=== PATIENT | male | born 1945 | race Two or more races ===

== ENCOUNTER 2016-07-02 16:30 | Inpatient (IN) | payer MEDICARE, OTHER ==
[~2016-07-02] VITALS: Ht 170.2 cm; Wt 67.1 kg
[2016-07-02 17:18] VITALS: BP 170/58
[2016-07-02 17:26] LABS: MEAN CORPUSCULAR HGB CONC 32.2 G/DL (32.0-36.0); MEAN CORPUSCULAR VOLUME 90 FL (80-99); MEAN PLATELET VOLUME 5.1 FL (6.5-10.1); PLATELET COUNT 419 K/UL (150-450); RED BLOOD COUNT 2.69 M/UL (4.70-6.10); RED CELL DISTRIBUTION WIDTH 14.4 % (11.6-14.8); WHITE BLOOD COUNT 8.2 K/UL (4.8-10.8)
[2016-07-02] MEDS ORDERED: AMLODIPINE BESYL5 MG ORAL (17:27)
[2016-07-02] MEDS ORDERED: HUMULIN N100 UNIT/1 SUBQ (17:27)
[2016-07-02 17:40] LABS: PROTHROMBIN TIME 10.3 SEC (9.30-11.50)
[2016-07-02 17:44] LABS: ALANINE AMINOTRANSFERASE 8 U/L (3-41); ALBUMIN/GLOBULIN RATIO 0.6 (1.0-2.7); ANION GAP 14 (5-15); ASPARTATE AMINO TRANSFERASE 14 U/L (5-40); CALCIUM 8.9 mg/dL (8.6-10.2); CARBON DIOXIDE 27 mEQ/L (20-30); CHLORIDE 92 mEQ/L (98-107); CREATININE 1.2 mg/dL (0.7-1.2); GLOMERULAR FILTRATION RATE > 60 mL/min (>60); HEMOLYSIS 0; POTASSIUM 4.5 mEQ/L (3.4-4.9); SODIUM 133 mEQ/L (135-145); TOTAL PROTEIN 8.5 g/dL (6.6-8.7)
[2016-07-02 18:49] LABS: BAND NEUTROPHILS % (MANUAL) 1 % (0-8); EOSINOPHILS % (MANUAL) 5 % (0-3); LYMPHOCYTES % (MANUAL) 19 % (20-45); NEUTROPHILS % (MANUAL) 65 % (45-75); TOTAL CELLS COUNTED 100
[2016-07-02 18:50] LABS: ANISOCYTOSIS 1+; BASOPHILS % (MANUAL) 0 % (0-2); PLATELET ESTIMATE INCREASED; PLATELET MORPHOLOGY NORMAL; POLYCHROMASIA 1+
[2016-07-02 19:13] VITALS: BP 158/67
--- NOTE | 2016-07-02 19:24 | Emergency Room Report ---
History of Present Illness General Chief Complaint: General Complaint Source: Patient Present Illness HPI 71-year-old male referred to ED for evaluation. Patient states he was told his hemoglobin was low. Patient had blood work done last week. Patient was referred by PMD Dr. Feliciano. Upon arrival patient states he feels fine. Denies any weakness. Denies any chest pain or shortness of breath. Denies any blood in the stool. No aggravating relieving factors. Denies any other associated symptoms Allergies: Coded Allergies: No Known Allergies (Unverified , 07/02/16) Patient History Past Medical History: DM, HTN Past Surgical History: other - toe amputations Pertinent Family History: none Social History: Denies: alcohol use, drug use, smoking Immunizations: UTD Reviewed Nursing Documentation: PMH: Agreed, PSxH: Agreed Nursing Documentation-PMH Past Medical History: No History, Except For Hx Hypertension: Yes Hx Diabetes: Yes Review of Systems All Other Systems: negative except mentioned in HPI Physical Exam Vital Signs Date Time Temp Pulse Resp B/P Pulse Ox O2 Delivery O2 Flow Rate FiO2 07/02/16 16:40 98.1 72 18 169/64 98 Room Air Sp02 EP Interpretation: reviewed, normal General Appearance: no apparent distress, alert, GCS 15, non-toxic Head: normocephalic, atraumatic Eyes: bilateral eye PERRL, bilateral eye normal inspection ENT: hearing grossly normal, normal pharynx, no angioedema, normal voice Neck: full range of motion, supple/symm/no masses Respiratory: chest non-tender, lungs clear, normal breath sounds, speaking full sentences Cardiovascular #1: regular rate, rhythm, no edema Cardiovascular #2: 2+ carotid (R), 2+ carotid (L), 2+ radial (R), 2+ radial (L) , 2+ dorsalis pedis (R), 2+ dorsalis pedis (L) Gastrointestinal: normal bowel sounds, non tender, soft, non-distended, no guarding, no rebound Rectal: deferred Genitourinary: normal inspection, no CVA tenderness Musculoskeletal: back normal, gait/station normal, normal range of motion, non- tender Neurologic: alert, oriented x3, responsive, motor strength/tone normal, sensory intact, speech normal Psychiatric: judgement/insight normal, memory normal, mood/affect normal, no suicidal/homicidal ideation Reflexes: 3+ bicep (R), 3+ bicep (L), 3+ tricep (R), 3+ tricep (L), 3+ knee (R) , 3+ knee (L) Skin: normal color, no rash, warm/dry, well hydrated Lymphatic: no adenopathy Medical Decision Making Diagnostic Impression: Primary Impression: Anemia ER Course Hospital Course 71-year-old male presents to ED for evaluation of possible anemia Differential diagnoses include: anemia requiring transfusion, microcytic anemia , macrocytic anemia, heavy blood loss Clinical course Patient placed on stretcher. After initial history and physical I ordered labs including CBC and type and screen. Labs- hemoglobin/hematocrit 7.8/24.3. Electrolytes okay, no leukocytosis PRBCs ordered. Patient will be admitted to Dr Feliciano Diagnosis - Anemia Admitted to floor in serious condition Labs Test 07/02/16 17:14 White Blood Count 8.2 K/UL (4.8-10.8) Red Blood Count 2.69 M/UL (4.70-6.10) Hemoglobin 7.8 G/DL (14.2-18.0) Hematocrit 24.3 % (42.0-52.0) Mean Corpuscular Volume 90 FL (80-99) Mean Corpuscular Hemoglobin 29.0 PG (27.0-31.0) Mean Corpuscular Hemoglobin Concent 32.2 G/DL (32.0-36.0) Red Cell Distribution Width 14.4 % (11.6-14.8) Platelet Count 419 K/UL (150-450) Mean Platelet Volume 5.1 FL (6.5-10.1) Neutrophils (%) (Auto) % (45.0-75.0) Lymphocytes (%) (Auto) % (20.0-45.0) Monocytes (%) (Auto) % (1.0-10.0) Eosinophils (%) (Auto) % (0.0-3.0) Basophils (%) (Auto) % (0.0-2.0) Differential Total Cells Counted 100 Neutrophils % (Manual) 65 % (45-75) Lymphocytes % (Manual) 19 % (20-45) Monocytes % (Manual) 10 % (1-10) Eosinophils % (Manual) 5 % (0-3) Basophils % (Manual) 0 % (0-2) Band Neutrophils 1 % (0-8) Platelet Estimate Increased Platelet Morphology Normal Polychromasia 1+ Anisocytosis 1+ Prothrombin Time 10.3 SEC (9.30-11.50) Prothromb Time International Ratio 1.0 (0.9-1.1) Activated Partial Thromboplast Time 30 SEC (23-33) Sodium Level 133 mEQ/L (135-145) Potassium Level 4.5 mEQ/L (3.4-4.9) Chloride Level 92 mEQ/L (98-107) Carbon Dioxide Level 27 mEQ/L (20-30) Anion Gap 14 (5-15) Blood Urea Nitrogen 22 mg/dL (7-23) Creatinine 1.2 mg/dL (0.7-1.2) Estimat Glomerular Filtration Rate > 60 mL/min (>60) Glucose Level 138 mg/dL (74-106) Calcium Level 8.9 mg/dL (8.6-10.2) Total Bilirubin 0.2 mg/dL (0.0-1.2) Aspartate Amino Transf (AST/SGOT) 14 U/L (5-40) Alanine Aminotransferase (ALT/SGPT) 8 U/L (3-41) Alkaline Phosphatase 84 U/L (40-129) Total Protein 8.5 g/dL (6.6-8.7) Albumin 3.3 g/dL (3.5-5.2) Globulin 5.2 g/dL Albumin/Globulin Ratio 0.6 (1.0-2.7) Last Vital Signs Date Time Temp Pulse Resp B/P Pulse Ox O2 Delivery O2 Flow Rate FiO2 07/02/16 19:13 98.0 76 15 158/67 100 Room Air Status: improved Disposition: ADMITTED INPATIENT Condition: Serious Referrals: Saran Feliciano MD (PCP) JAZMIN VILLAREAL M.D. Jul 02, 2016 19:24
[2016-07-02] MEDS ORDERED: Mylanta II UD 30ml ORAL PRN (20:45)
[2016-07-02] MEDS ORDERED: Miralax 17gm pkt ORAL PRN (20:45)
[2016-07-02] MEDS ORDERED: LORazepam Inj 2mg/ml 1ml IV PRN (20:45)
[2016-07-02] MEDS ORDERED: Zolpidem 5mg tab ORAL PRN (20:45)
[2016-07-02 21:27] LABS: PATH BLOOD SMEAR/OMC SENT TO PATHOLOGIST
[2016-07-02 21:36] VITALS: BP 169/57
[2016-07-02 21:42] LABS: INR 1.1 (0.9-1.1); PROTHROMBIN TIME 10.7 SEC (9.30-11.50)
[2016-07-02] MEDS: Morphine Sulfate 2mg/ml Inj IVP PRN (22:07)
[2016-07-02 22:41] LABS: RETICULOCYTE COUNT 1.4 % (0.0-2.0)
[2016-07-02 22:45] VITALS: BP 131/97
[2016-07-02 23:00] VITALS: BP 121/60
[2016-07-02] MEDS: NovoLOG Insulin Flexpen SUBQ SCH (23:11)
[2016-07-03] VITALS: BP 123/55
[2016-07-03 03:43] VITALS: BP 146/68
[2016-07-03] MEDS: NovoLOG Insulin Flexpen SUBQ SCH ×4 (06:01→20:56)
[2016-07-03 06:50] LABS: BASOPHILS % (AUTO) 0.6 % (0.0-2.0); EOSINOPHILS % (AUTO) 3.5 % (0.0-3.0); LYMPHOCYTES % (AUTO) 20.4 % (20.0-45.0); MEAN CORPUSCULAR HEMOGLOBIN 27.9 PG (27.0-31.0); MEAN CORPUSCULAR HGB CONC 31.5 G/DL (32.0-36.0); MEAN CORPUSCULAR VOLUME 88 FL (80-99); MEAN PLATELET VOLUME 5.4 FL (6.5-10.1); MONOCYTES % (AUTO) 12.7 % (1.0-10.0); NEUTROPHILS % (AUTO) 62.8 % (45.0-75.0); PLATELET COUNT 319 K/UL (150-450); RED BLOOD COUNT 2.87 M/UL (4.70-6.10); RED CELL DISTRIBUTION WIDTH 13.9 % (11.6-14.8); WHITE BLOOD COUNT 6.8 K/UL (4.8-10.8)
[2016-07-03 07:22] LABS: ALANINE AMINOTRANSFERASE 6 U/L (3-41); ALBUMIN/GLOBULIN RATIO 0.6 (1.0-2.7); ANION GAP 11 (5-15); ASPARTATE AMINO TRANSFERASE 12 U/L (5-40); CALCIUM 8.5 mg/dL (8.6-10.2); CARBON DIOXIDE 28 mEQ/L (20-30); CHLORIDE 98 mEQ/L (98-107); CREATININE 1.3 mg/dL (0.7-1.2); GLOMERULAR FILTRATION RATE 54.7 mL/min (>60); HEMOLYSIS 6; POTASSIUM 4.9 mEQ/L (3.4-4.9); SODIUM 137 mEQ/L (135-145); TOTAL PROTEIN 7.2 g/dL (6.6-8.7)
[2016-07-03 08:17] VITALS: BP 148/59
[2016-07-03 11:55] VITALS: BP 142/62
[2016-07-03 16:00] VITALS: BP 142/59
--- NOTE | 2016-07-03 17:04 | History & Physical ---
History and Physical History & Physicial Dictated for Int Med Dr Feliciano no. [id number]. GERSON FLOR Jul 03, 2016 17:04
--- NOTE | 2016-07-03 19:37 | Consultation ---
History of Present Illness General Date patient seen: Jul 03, 2016 Time patient seen: 13:30 Chief Complaint: General Complaint Referring physician: Braden Reason for Consultation: internal medicine management Present Illness HPI 71-year-old male was referred to ED for evaluation. Patient stated that he was told his hemoglobin was low, blood work done last week. Denies weakness, No chest pain, no SOB Denies melena, hematemesis, hematochezia Denies any weakness. ED workup revealed hemoglobin of 7.8 and Hct 24.3 No leukocytosis, stable lytes patient was admitted for further management and blood transfusion to [facility] floor PMH: DM, HTN, depression, hx of R foot toes amputation earlier this month , R eye cataract Allergies: Coded Allergies: No Known Allergies (Unverified , 07/02/16) Medication History Scheduled Amlodipine Besylate* (Amlodipine Besylate*), 5 MG ORAL DAILY, (Reported) Miscellaneous Medications Nph, Human Insulin Isophane (Humulin N), 0 SUBQ, (Reported) Patient History History Provided By: Patient Healthcare decision maker Resuscitation status Full Code Advanced Directive on File Review of Systems Constitutional: Reports: no symptoms Eye: Reports: acuity changes, other - R eye cataracts Respiratory: Reports: no symptoms Cardiovascular: Reports: other - HTN Gastrointestinal: Reports: constipation Genitourinary: Reports: no symptoms Musculoskeletal: Reports: other - w/chair bound Skin: Reports: other - R foot all toes amputation Psychiatric: Reports: other - depression Neurological: Reports: no symptoms Endocrine: Reports: other - diabetes Hematologic/Lymphatic: Reports: anemia Physical Exam General Appearance: no apparent distress, alert Lines, tubes and drains: peripheral HEENT: normocephalic, atraumatic, anicteric, mucous membranes moist, PERRL Neck: non-tender, supple Respiratory/Chest: lungs clear, no respiratory distress, no accessory muscle use Cardiovascular/Chest: normal peripheral pulses, normal rate, no JVD Abdomen: normal bowel sounds, non tender, soft Extremities: no calf tenderness, normal capillary refill, other - w/chair bound , R foot all toes amputated Skin Exam: other Musculoskeletal: atrophy - BLE Last 24 Hour Vital Signs Date Time Temp Pulse Resp B/P Pulse Ox O2 Delivery O2 Flow Rate FiO2 07/03/16 16:00 98.2 78 20 142/59 98 Room Air 07/03/16 13:39 73 144/65 07/03/16 11:55 98.4 68 20 142/62 99 Room Air 07/03/16 08:17 97.7 64 20 148/59 99 Room Air 07/03/16 03:43 98.2 65 18 146/68 99 Room Air 07/03/16 00:00 98.2 56 18 123/55 100 Room Air 07/02/16 23:00 97.9 60 18 121/60 98 Room Air 07/02/16 22:45 97.7 70 20 131/97 97 Room Air 07/02/16 22:06 79 169/57 07/02/16 21:36 98.3 79 17 169/57 100 Room Air Intake and Output 07/02/16 07/03/16 19:00 07:00 Intake Total 675 ml Output Total 500 ml Balance 175 ml Intake Oral 675 ml Output Urine Total 500 ml # Voids 5 Laboratory Tests Test 07/02/16 21:15 07/03/16 05:45 Erythrocyte Sedimentation Rate 142 MM/HR (0-20) H Reticulocyte Count 1.4 % (0.0-2.0) Prothrombin Time 10.7 SEC (9.30-11.50) Prothromb Time International Ratio 1.1 (0.9-1.1) Activated Partial Thromboplast Time 30 SEC (23-33) Iron Level 22 ug/dL (59-158) L Total Iron Binding Capacity 195 ug/dL (250-400) L Percent Iron Saturation 11 % (15-50) L Unsaturated Iron Binding 173 ug/dL (112-346) Lactate Dehydrogenase 191 U/L (135-230) Carcinoembryonic Antigen 1.5 ng/mL Vitamin B12 Level 122 pg/mL (211-946) L White Blood Count 6.8 K/UL (4.8-10.8) Red Blood Count 2.87 M/UL (4.70-6.10) L Hemoglobin 8.0 G/DL (14.2-18.0) L Hematocrit 25.4 % (42.0-52.0) L Mean Corpuscular Volume 88 FL (80-99) Mean Corpuscular Hemoglobin 27.9 PG (27.0-31.0) Mean Corpuscular Hemoglobin Concent 31.5 G/DL (32.0-36.0) L Red Cell Distribution Width 13.9 % (11.6-14.8) Platelet Count 319 K/UL (150-450) Mean Platelet Volume 5.4 FL (6.5-10.1) L Neutrophils (%) (Auto) 62.8 % (45.0-75.0) Lymphocytes (%) (Auto) 20.4 % (20.0-45.0) Monocytes (%) (Auto) 12.7 % (1.0-10.0) H Eosinophils (%) (Auto) 3.5 % (0.0-3.0) H Basophils (%) (Auto) 0.6 % (0.0-2.0) Sodium Level 137 mEQ/L (135-145) Potassium Level 4.9 mEQ/L (3.4-4.9) Chloride Level 98 mEQ/L (98-107) Carbon Dioxide Level 28 mEQ/L (20-30) Anion Gap 11 (5-15) Blood Urea Nitrogen 27 mg/dL (7-23) H Creatinine 1.3 mg/dL (0.7-1.2) H Estimat Glomerular Filtration Rate 54.7 mL/min (>60) Glucose Level 191 mg/dL (74-106) H Calcium Level 8.5 mg/dL (8.6-10.2) L Total Bilirubin < 0.2 mg/dL (0.0-1.2) Aspartate Amino Transf (AST/SGOT) 12 U/L (5-40) Alanine Aminotransferase (ALT/SGPT) 6 U/L (3-41) Alkaline Phosphatase 72 U/L (40-129) Total Protein 7.2 g/dL (6.6-8.7) Albumin 2.9 g/dL (3.5-5.2) L Globulin 4.3 g/dL Albumin/Globulin Ratio 0.6 (1.0-2.7) L Thyroid Stimulating Hormone (TSH) 1.290 uIU/mL (0.300-4.500) Height (Feet): 5 Height (Inches): 9.00 Weight (Pounds): 150 Medications Current Medications Medications (Trade) Dose Ordered Sig/Daphne Route PRN Reason Start Time Stop Time Status Last Admin Dose Admin Acetaminophen (Tylenol) 650 mg Q4H PRN ORAL fever 07/02/16 20:45 08/01/16 20:44 Al Hydroxide/Mg Hydroxide (Mylanta II) 30 ml Q6H PRN ORAL dyspepsia 07/02/16 20:45 08/01/16 20:44 Amlodipine Besylate (Norvasc) 5 mg DAILY ORAL 07/02/16 21:30 08/01/16 21:29 07/03/16 13:39 Dextrose (Dextrose 50%) STAT PRN IV Hypoglycemia 07/02/16 20:45 08/01/16 20:44 Insulin Aspart (NovoLOG) BEFORE MEALS AND HS SUBQ 07/02/16 22:00 08/01/16 21:59 07/03/16 16:47 Lorazepam (Ativan 2mg/ml 1ml) 0.5 mg Q4H PRN IV For Anxiety 07/02/16 20:45 07/09/16 20:44 Morphine Sulfate (Morphine Sulfate) 1 mg EVERY 4 HOURS PRN IVP For Pain 07/02/16 20:45 07/09/16 20:44 07/02/16 22:07 Ondansetron HCl (Zofran) 4 mg Q6H PRN IVP Nausea & Vomiting 07/02/16 20:45 08/01/16 20:44 Polyethylene Glycol (Miralax) 17 gm HSPRN PRN ORAL Constipation 07/02/16 20:45 08/01/16 20:44 Zolpidem Tartrate (Ambien) 5 mg HSPRN PRN ORAL Insomnia 07/02/16 20:45 08/01/16 20:44 Assessment/Plan Assessment/Plan ASSESSMENT anemia B 12 deficiency iron deficiency anemia DM HTN s/p R toes amputation PVD PLAN OF CARE [facility] floor s/p 1 u PRBC anemia workup with B 12 deficiency and low iron start on vit B 12 replacement heme follows?Venofer = per heme discretion m,onitor HH cloely, tranfuse a sneeded stool OB x 2 CEA WNL BS management with SS of insulin podiatry eval as per PMD discretion Venous Duplex BLE negative check Arterial Duplex BLE BP monitoring manager with CCB pain management bowel regimen case discussed and evaluated by supervising physician Delmer Zavala)Emily NP Jul 03, 2016 19:37
--- NOTE | 2016-07-03 19:39 | Wound Care Consultation ---
Wound Assessment Wound Assessment : Wound Present on Admission: Yes New Wound: No Status Change of Wound: No Wound Location Body Site Modif: right Wound Location Body Site: other - s/p all toes amputation Wound Type: incision Shiloh Test: Does not Shiloh Incisional Wounds: Dehisced Incision Wound Length: 11.0 Wound Width: 4.0 Wound Depth: utd Percent of Wound [place]/Red: 20 Percent of Wound Bed Yellow/Wh: 60 Percent of Wound Black/Brown: 20 Wound Drainage Description: Serosanguineous Wound Drainage Amount: Moderate Wound Drainage Odor: None/Absent Tissue Surrounding Wound: Macerated Wound General Appearance: Draining Wound Comment #1 S/p toe amputation of the right toes on 05/2016 Recommendation -Cleanse with saline pat dry apply adaptic cover with 4x4 wrap with kerilx daily and PRN soiled/dislodged -Study Abroad Advisor consult -Keep clean and dry -Offload heel -Optimize nutrition -Assess and f/u with MD for any changes BRYANT TAYLOR RN Jul 03, 2016 19:39
[2016-07-03 20:00] VITALS: BP 141/70
--- NOTE | 2016-07-03 21:42 | Diagnostic Imaging Report ---
APPROVED REPORT CPT Code: 54900 Present Symptoms Lower Extremity Pain: Right Comments: R/O DVT BILATERAL: Imaging reveals a patent deep venous system bilaterally. There is no evidence of thrombus within the femoral, popliteal or tibial segments. The greater saphenous veins are also within normal limits. Doppler indicates normal spontaneous flow within these segments.
--- NOTE | 2016-07-03 23:09 | History and Physical Report ---
DATE OF ADMISSION: 07/03/2016 CHIEF COMPLAINT: The patient is a 71-year-old male, presents with complaint of anemia. Dictating for Dr. Feliciano. HISTORY OF PRESENT ILLNESS: Apparently, the patient had blood drawn at Dr. Feliciano's office. The patient was told to come to the emergency room. The patient was found to have a hemoglobin of 7.8. According to the patient's daughter, who was at the bedside, the patient has a history of right foot ulcer. The patient has not been able to eat or drink much secondary to immobility. The patient has been seen by a home health nurse. The patient's daughter states that the patient has lost approximately 30 pounds in the last month. The patient's daughter believes, the patient's anemia may be secondary to malnutrition. The patient was admitted for severe anemia. PAST MEDICAL HISTORY: Significant for: 1. Type 2 diabetes. 2. Hypertension. PAST SURGICAL HISTORY: Significant for laser surgery, bilateral eyes for diabetic retinopathy. CURRENT MEDICATIONS: 1. Amlodipine 5 mg one tablet p.o. daily. 2. NPH insulin 12 units subcutaneously daily. ALLERGIES: No known drug allergies. SOCIAL HISTORY: The patient is . The patient denied tobacco use having, quit 25 years ago. The patient admits to rare alcohol use. FAMILY HISTORY: Negative for diabetes or coronary artery disease. REVIEW OF SYSTEMS: CONSTITUTIONAL: The patient denies fevers or chills. The patient complains of weight loss as above. HEENT: The patient denies ear or throat pain. The patient denies headache. CARDIOVASCULAR: The patient denies palpitations or chest pain. CHEST: The patient denies wheezes or shortness of breath. ABDOMINAL: The patient denies nausea, vomiting, diarrhea, or constipation. GENITOURINARY: The patient denies dysuria or increased frequency of urination. NEUROMUSCULAR: The patient denies seizures or generalized weakness. PHYSICAL EXAMINATION: VITAL SIGNS: Temperature 97.9, respirations 18, pulse 60, blood pressure 129/60. GENERAL: The patient is a well-developed and well-nourished thin-appearing male, in no apparent distress. HEENT: Eyes, pupils are equal and responsive to light and accommodation. Extraocular movements are intact. NECK: Supple without lymphadenopathy. CHEST: Lungs are clear to auscultation without wheezes or rales. CARDIOVASCULAR: Regular rhythm and rate. S1 and S2 are normal without murmurs, rubs, or gallops. ABDOMEN: Soft, nontender, and nondistended. Positive bowel sounds. No evidence of hepatosplenomegaly. Currently, no rebound or guarding. EXTREMITIES: Negative for clubbing, cyanosis, or edema. RECTAL/GENITAL: Refused. NEUROLOGICAL: Cranial nerves II through XII are grossly intact without focal deficits. Motor strength is 5/5 bilaterally. Deep tendon reflexes are 2+ plantar. LABORATORY DATA: Laboratory studies, WBC 8.2, hemoglobin 7.8, hematocrit 24.3, and platelets 419,000. Sodium 133, potassium 4.5, chloride 92, CO2 27, BUN 22, creatinine 1.2, and glucose 138. ASSESSMENT: This is a 71-year-old male with: 1. Severe anemia. 2. Right foot ulcer. 3. Diabetes, type 2. 4. Hypertension. 5. Diabetic retinopathy. TREATMENT: 1. Anemia, severe. A Hematology/Oncology consultation was obtained with Dr. Collins. A Gastroenterology consultation was obtained with Dr. Farris. Anemia, may be secondary to malnutrition as above versus gastrointestinal bleeding versus deficiency. We will follow recommendations of Gastroenterology and Hematology. 2. Diabetes, type 2. The patient has been placed on NovoLog sliding scale. 3. Hypertension. We will continue Norvasc as above. 4. Diabetic retinopathy. Malcolm Lazaro M.D. DR: JANIE JOB#: [id number] CC:
--- NOTE | 2016-07-03 23:29 | Consultation ---
DATE OF CONSULTATION: 07/03/2016 CONSULTING PHYSICIAN: Curry Ramos D.P.M. covering for Raymon Alves D.P.M. REASON FOR CONSULTATION: Right foot ulcer. HISTORY OF PRESENT ILLNESS: This is a 71-year-old male, who was found unconscious in his apartment 5 weeks ago with right forefoot gangrene. A transmetatarsal amputation was performed at [facility] and the wound was left open. The patient was discharged home with 10 days of oral antibiotics. Home health has been coming to his house daily for dressing changes. The patient states he has been noticing pain at the plantar aspect of the right foot. No nausea, vomiting, fevers, or chills reported. PAST MEDICAL HISTORY: Type 2 diabetes, anemia, and the right forefoot gangrene. PAST SURGICAL HISTORY: Left hallux amputation and right foot open transmetatarsal amputation. ALLERGIES: No known. MEDICATIONS: The patient is currently not on any antibiotics. Please refer the chart for details. FAMILY HISTORY: Noncontributory. SOCIAL HISTORY: Patient denied tobacco, alcohol, or illicit drug use. PHYSICAL EXAM: VITAL SIGNS: Temperature 98.4 degrees, pulse 68, respiratory rate 40, blood pressure 142/62, pulse oximetry is 99% on room air. DERMATOLOGICAL: Right foot with open transmetatarsal amputation. The area has four sutures in place. The skin edges are noted to have slight necrosis. No purulence or malodor noted. The area is approximately 50% granular and 50% fibrotic. Mild serous drainage. The wound does not appear to probe to bone. The right plantar foot is painful with palpation. Edema noted with the plantar aspect of the right foot. NEUROLOGICAL: Decreased sensation to light touch. VASCULAR: pulses difficult to palpate. Right plantar mid foot edema. No surrounding erythema or no ascending lymphangitis. MUSCULOSKELETAL: Right foot with open transmetatarsal amputation. Left foot with hallux amputation. LABORATORY AND DIAGNOSTIC DATA: White blood count of 6.8, hemoglobin is 8.0, hematocrit 25.4, platelets 319,000, and neutrophils of 62.8. Sodium 137, potassium 4.1, chloride 98, CO2 28, BUN 27, creatinine 1.3, and glucose is 91. ASSESSMENT: 1. Right foot open transmetatarsal amputation with possible abscess at the plantar midfoot. Patient is currently afebrile and without leukocytosis 2. Type 2 diabetes with peripheral neuropathy. 3. Peripheral vascular disease. PLAN: 1. Wound cultures were taken. 2. Ordered MRI. 3. Ordering arterial Doppler exam. 4. Start daily wound care. 5. Ordering ESR, CRP, and hemoglobin A1c. Thank you for the consultation. Curry Ramos DPM DR: Jacquelyn JOB#: [id number] CC: TOMÁS
[2016-07-04] VITALS: BP 142/61
[2016-07-04] MEDS: Morphine Sulfate 2mg/ml Inj IVP PRN ×2 (00:07→21:21)
--- NOTE | 2016-07-04 03:09 | Consultation ---
DATE OF CONSULTATION: 07/03/2016 HEMATOLOGY/ONCOLOGY CONSULTATION: REQUESTING PHYSICIAN: Malcolm Lazaro M.D. REASON FOR CONSULTATION: Evaluation of anemia. IDENTIFICATION: Dear Dr. Malcolm Lazaro, The patient is a pleasant 71-year-old male with past medical history significant for diabetes mellitus and hypertension, presented to [facility] with decreased hemoglobin, which was noted to be at 7.8. The patient has not been at [facility] in the past, any further history. The patient also has past medical history of diabetes mellitus and hypertension. The patient feels fine without any weakness. No . No shortness of breath. signs are positive. No bleeding noted. no recent travel. No . No bleeding noted. PAST MEDICAL HISTORY: Diabetes mellitus and hypertension. PAST SURGICAL HISTORY: Toe amputation. ALLERGIES: No known drug allergies. SOCIAL HISTORY: No alcohol, tobacco, or illicit drug use. REVIEW OF SYSTEMS: Constitutional: No fever, chills, or night sweats. Skin: No rashes, lumps, or itching. HEENT: No headache or vision changes. Breasts: No lumps, pain, or discharge. Pulmonary: No cough, sputum, or shortness of breath. Cardiovascular: No chest pain, tightness, or palpitations. Gastrointestinal: No nausea, vomiting, or diarrhea. Genitourinary: No dysuria, frequency, or urgency. Musculoskeletal: No joint swelling, muscle pain, or trauma. PHYSICAL EXAMINATION: GENERAL: The patient is in no acute distress. VITAL SIGNS: Blood pressure 141/70, pulse oximetry 97% on room air, respiratory rate , temperature degrees Fahrenheit, and pulse , PULMONARY: Decreased breath sounds. CARDIOVASCULAR: Regular rate and rhythm. ABDOMEN: Soft, nontender, and nondistended. EXTREMITIES: A 1+ edema. LABORATORY AND DIAGNOSTIC DATA: WBC 6 , hemoglobin , hematocrit 25, and platelet count 318,000. ESR 142. . B12 122. Total protein 7.2. TRINITY creatinine 1.3 and glucose 191. INR 1.1. Imaging, venous Duplex of the lower extremities shows DVT bilaterally. ASSESSMENT: 1. Anemia. 2. B12 deficiency. B12 122. The patient currently on B12 at this time intramuscularly injection. 3. ESR elevated at 142 likely secondary to extremity infection . 4. Decreased hemoglobin and hematocrit, rule out gastrointestinal bleed. 5. Diabetes mellitus. 6. Hypertension. 7. Hypocalcemia. 8. Malnutrition. RECOMMENDATION: 1. Monitor counts. 2. Anemia workup has been ordered. 3. Does not require iron . 4. I have began B12 injection. 5. acid levels to evaluate the patient's anemia. 6. May consider in the future further evaluation require . 7. Consider GI evaluation. 8. Pain control. 9. Blood pressure control. 10. At this time, the patient did not had any evidence of any blood loss. 11. Maintain hemoglobin above 7. Thank you, Dr. Malcolm Lazaro, for this kind referral. Please do not hesitate to contact me if you have any further questions. Demetrio Collins M.D. DR: Pau JOB#: [id number] CC:
[2016-07-04 04:00] VITALS: BP 149/67
[2016-07-04] MEDS: NovoLOG Insulin Flexpen SUBQ SCH ×4 (06:07→21:26)
[2016-07-04 06:20] LABS: MEAN CORPUSCULAR HEMOGLOBIN 28.4 PG (27.0-31.0); MEAN CORPUSCULAR HGB CONC 32.2 G/DL (32.0-36.0); MEAN CORPUSCULAR VOLUME 88 FL (80-99); MEAN PLATELET VOLUME 5.4 FL (6.5-10.1); PLATELET COUNT 341 K/UL (150-450); RED BLOOD COUNT 2.79 M/UL (4.70-6.10); RED CELL DISTRIBUTION WIDTH 13.9 % (11.6-14.8); WHITE BLOOD COUNT 7.6 K/UL (4.8-10.8)
[2016-07-04 06:41] LABS: CALCIUM 8.4 mg/dL (8.6-10.2); CREATININE 1.4 mg/dL (0.7-1.2); GLOMERULAR FILTRATION RATE 50.2 mL/min (>60); POTASSIUM 4.8 mEQ/L (3.4-4.9)
[2016-07-04 06:46] LABS: CRP QUANT 2.7 mg/dL (< 0.5)
[2016-07-04 08:39] VITALS: BP 157/67
[2016-07-04] MEDS ORDERED: Vitamin B12 1000mcg/ml Inj IM SCH (09:00)
[2016-07-04 11:54] VITALS: BP 142/65
--- NOTE | 2016-07-04 12:39 | Pulmonology Progress Note ---
Assessment/Plan Assessment/Plan ASSESSMENT anemia r/o GI bleeding B 12 deficiency anemia iron deficiency anemia DM HTN s/p Right foot open transmetatarsal amputation with possible abscess at the plantar midfoot. PVD PLAN OF CARE MS floor s/p 1 u PRBC anemia workup with B 12 deficiency and low iron started on vit B 12 replacement as per heme, heme follows ?Venofer - per heme discretion , iron panel low monitor HH closely, transfuse as needed stool OB x 2 ? GI eval - per PMD discretion , CEA WNL BS management with SS of insulin podiatry follows MRI- R foot pending Venous Duplex BLE negative Arterial Duplex BLE-pending BP tutoring manager with CCB, optimize as needed pain management bowel regimen case discussed and evaluated by supervising physician Subjective Allergies: Coded Allergies: No Known Allergies (Unverified , 07/02/16) Subjective afebrile, no leukocytosis denies SOB, weakness HH down to 7.9/24.6b Objective Last 24 Hour Vital Signs Date Time Temp Pulse Resp B/P Pulse Ox O2 Delivery O2 Flow Rate FiO2 07/04/16 11:54 97.9 65 16 142/65 99 Room Air 07/04/16 08:43 74 157/67 07/04/16 08:39 97.7 74 16 157/67 99 Room Air 07/04/16 04:00 98.1 63 19 149/67 98 Room Air 07/04/16 00:00 98.8 64 20 142/61 98 Room Air 07/03/16 20:00 99.0 68 20 141/70 98 Room Air 07/03/16 16:00 98.2 78 20 142/59 98 Room Air 07/03/16 13:39 73 144/65 Intake and Output 07/03/16 07/04/16 19:00 07:00 Intake Total 360 ml 240 ml Output Total 400 ml 650 ml Balance -40 ml -410 ml Intake Oral 360 ml 240 ml Output Urine Total 400 ml 650 ml Objective General Appearance: no apparent distress, alert, awake, responsive male Lines, tubes and drains: peripheral HEENT: normocephalic, atraumatic, anicteric, mucous membranes moist, PERRL Neck: non-tender, supple Respiratory/Chest: lungs clear, no respiratory distress, no accessory muscle use Cardiovascular/Chest: normal peripheral pulses, normal rate, no JVD Abdomen: normal bowel sounds, non tender, soft Extremities: no calf tenderness, normal capillary refill, other - w/chair bound , R foot all toes amputated Skin Exam: other Musculoskeletal: atrophy - BLE Microbiology Date/Time Source Procedure Growth Status 07/03/16 19:00 Wound Gram Stain - Final Resulted 07/03/16 19:00 Wound Aerobic Culture Pending Resulted 07/03/16 19:00 Wound Anaerobic Culture Pending Resulted Laboratory Tests 07/04/16 04:50: White Blood Count 7.6, Red Blood Count 2.79L, Hemoglobin 7.9L, Hematocrit 24.6L , Mean Corpuscular Volume 88, Mean Corpuscular Hemoglobin 28.4, Mean Corpuscular Hemoglobin Concent 32.2, Red Cell Distribution Width 13.9, Platelet Count 341, Mean Platelet Volume 5.4L, Neutrophils (%) (Auto) , Lymphocytes (%) ( Auto) , Monocytes (%) (Auto) , Eosinophils (%) (Auto) , Basophils (%) (Auto) , Erythrocyte Sedimentation Rate 132H, Sodium Level 137, Potassium Level 4.8, Chloride Level 99, Carbon Dioxide Level 25, Anion Gap 13, Blood Urea Nitrogen 33H, Creatinine 1.4H, Estimat Glomerular Filtration Rate 50.2, Glucose Level 111H, Hemoglobin A1c 8.0H, Calcium Level 8.4L, Iron Level 28L, Total Iron Binding Capacity 179L, Percent Iron Saturation 16, Unsaturated Iron Binding 151 , Ferritin 188, C-Reactive Protein, Quantitative 2.7H, Vitamin B12 Level 111L, Methylmalonic Acid [Pending], Homocystine [Pending] Current Medications Medications (Trade) Dose Ordered Sig/Daphne Route PRN Reason Start Time Stop Time Status Last Admin Dose Admin Acetaminophen (Tylenol) 650 mg Q4H PRN ORAL fever 07/02/16 20:45 08/01/16 20:44 Al Hydroxide/Mg Hydroxide (Mylanta II) 30 ml Q6H PRN ORAL dyspepsia 07/02/16 20:45 08/01/16 20:44 Amlodipine Besylate (Norvasc) 5 mg DAILY ORAL 07/02/16 21:30 08/01/16 21:29 07/04/16 08:43 Cyanocobalamin (Vitamin B12) 1,000 mcg QMONTH IM 07/04/16 09:00 08/03/16 08:59 07/04/16 08:46 Dextrose (Dextrose 50%) STAT PRN IV Hypoglycemia 07/02/16 20:45 08/01/16 20:44 Insulin Aspart (NovoLOG) BEFORE MEALS AND HS SUBQ 07/02/16 22:00 08/01/16 21:59 07/04/16 11:56 Lorazepam (Ativan 2mg/ml 1ml) 0.5 mg Q4H PRN IV For Anxiety 07/02/16 20:45 07/09/16 20:44 Morphine Sulfate (Morphine Sulfate) 1 mg EVERY 4 HOURS PRN IVP For Pain 07/02/16 20:45 07/09/16 20:44 07/04/16 00:07 Ondansetron HCl (Zofran) 4 mg Q6H PRN IVP Nausea & Vomiting 07/02/16 20:45 08/01/16 20:44 Polyethylene Glycol (Miralax) 17 gm HSPRN PRN ORAL Constipation 07/02/16 20:45 08/01/16 20:44 Zolpidem Tartrate (Ambien) 5 mg HSPRN PRN ORAL Insomnia 07/02/16 20:45 08/01/16 20:44 Delmer (Bernabehelen)Emily NP Jul 04, 2016 12:39
--- NOTE | 2016-07-04 13:33 | Podiatric Progress Note ---
Assessment/Plan Patient Chandan Nielsen is a 71 year old male who was admitted on Jul 02, 2016 at 18:29 with anemia and right foot wound Problems: (1) Diabetic neuropathy associated with type 2 diabetes mellitus (2) Diabetes mellitus with peripheral angiopathy (3) Open wound of right foot Assessment/Plan Patient is currently afebrile and without leukocytosis. No left shift noted. No nausea, vomiting, fevers, or chills. He continues to experience pain at the plantar right foot with possible abscess formation. ESR 132 and CRP 2.7 - Awaiting right foot MRI results - Follow up final wound culture results - Continue daily dressing changes - Non weight bearing on right foot - Removed the 3 sutures from the right foot Subjective Reason for consult Right foot surgical wound Allergies: Coded Allergies: No Known Allergies (Unverified , 07/02/16) Subjective Patient states no nausea, vomiting, fevers, or chills. He does mentions pain at the plantar right foot with pressure Objective Exam Last 24 Hour Vital Signs Date Time Temp Pulse Resp B/P Pulse Ox O2 Delivery O2 Flow Rate FiO2 07/04/16 11:54 97.9 65 16 142/65 99 Room Air 07/04/16 08:43 74 157/67 07/04/16 08:39 97.7 74 16 157/67 99 Room Air 07/04/16 04:00 98.1 63 19 149/67 98 Room Air 07/04/16 00:00 98.8 64 20 142/61 98 Room Air 07/03/16 20:00 99.0 68 20 141/70 98 Room Air 07/03/16 16:00 98.2 78 20 142/59 98 Room Air 07/03/16 13:39 73 144/65 Laboratory Tests Test 07/04/16 04:50 White Blood Count 7.6 K/UL (4.8-10.8) Red Blood Count 2.79 M/UL (4.70-6.10) L Hemoglobin 7.9 G/DL (14.2-18.0) L Hematocrit 24.6 % (42.0-52.0) L Mean Corpuscular Volume 88 FL (80-99) Mean Corpuscular Hemoglobin 28.4 PG (27.0-31.0) Mean Corpuscular Hemoglobin Concent 32.2 G/DL (32.0-36.0) Red Cell Distribution Width 13.9 % (11.6-14.8) Platelet Count 341 K/UL (150-450) Mean Platelet Volume 5.4 FL (6.5-10.1) L Neutrophils (%) (Auto) % (45.0-75.0) Lymphocytes (%) (Auto) % (20.0-45.0) Monocytes (%) (Auto) % (1.0-10.0) Eosinophils (%) (Auto) % (0.0-3.0) Basophils (%) (Auto) % (0.0-2.0) Erythrocyte Sedimentation Rate 132 MM/HR (0-20) H Sodium Level 137 mEQ/L (135-145) Potassium Level 4.8 mEQ/L (3.4-4.9) Chloride Level 99 mEQ/L (98-107) Carbon Dioxide Level 25 mEQ/L (20-30) Anion Gap 13 (5-15) Blood Urea Nitrogen 33 mg/dL (7-23) H Creatinine 1.4 mg/dL (0.7-1.2) H Estimat Glomerular Filtration Rate 50.2 mL/min (>60) Glucose Level 111 mg/dL (74-106) H Hemoglobin A1c 8.0 % (< 6.0) H Calcium Level 8.4 mg/dL (8.6-10.2) L Iron Level 28 ug/dL (59-158) L Total Iron Binding Capacity 179 ug/dL (250-400) L Percent Iron Saturation 16 % (15-50) Unsaturated Iron Binding 151 ug/dL (112-346) Ferritin 188 ng/mL (10-230) C-Reactive Protein, Quantitative 2.7 mg/dL (< 0.5) H Vitamin B12 Level 111 pg/mL (211-946) L Methylmalonic Acid Pending Homocystine Pending Microbiology Date/Time Source Procedure Growth Status 07/03/16 19:00 Wound Gram Stain - Final Resulted 07/03/16 19:00 Wound Aerobic Culture Pending Resulted 07/03/16 19:00 Wound Anaerobic Culture Pending Resulted Exam Narrative Right plantar midfoot with edema and pain with palpation. Possible abscess formation. The open TMA surgical site has serous drainage with no purulence or malodor noted. 50% of the wound is fibrotic and 50% is granular. There is a thin layer of soft tissue covering the metatarsals. Skin edges at the incision site are noted to have hyperpigmentation and appear necrotic. Dermatological Wound Assessment : Exudate Amount: Moderate Curry Ramos DPM Jul 04, 2016 13:33
[2016-07-04] MEDS ORDERED: Tubing Blood Filter IV ONE (14:09)
[2016-07-04] MEDS ORDERED: NS 275ml ONE (14:09)
[2016-07-04] MEDS ORDERED: Tubing IV Secondary IV ONE (14:09)
[2016-07-04] MEDS ORDERED: NS 550ML IV ONE (14:09)
--- NOTE | 2016-07-04 14:10 | Internal Med Progress Note ---
Subjective Date of Service: Jul 04, 2016 Physician Name Gerson Flor Attending Physician Saran Feliciano MD Current Medications Medications (Trade) Dose Ordered Sig/Daphne Route PRN Reason Start Time Stop Time Status Last Admin Dose Admin Acetaminophen (Tylenol) 650 mg Q4H PRN ORAL fever 07/02/16 20:45 08/01/16 20:44 Al Hydroxide/Mg Hydroxide (Mylanta II) 30 ml Q6H PRN ORAL dyspepsia 07/02/16 20:45 08/01/16 20:44 Amlodipine Besylate (Norvasc) 5 mg DAILY ORAL 07/02/16 21:30 08/01/16 21:29 07/04/16 08:43 Cyanocobalamin (Vitamin B12) 1,000 mcg QMONTH IM 07/04/16 09:00 08/03/16 08:59 07/04/16 08:46 Dextrose (Dextrose 50%) STAT PRN IV Hypoglycemia 07/02/16 20:45 08/01/16 20:44 Insulin Aspart (NovoLOG) BEFORE MEALS AND HS SUBQ 07/02/16 22:00 08/01/16 21:59 07/04/16 11:56 Lorazepam (Ativan 2mg/ml 1ml) 0.5 mg Q4H PRN IV For Anxiety 07/02/16 20:45 07/09/16 20:44 Morphine Sulfate (Morphine Sulfate) 1 mg EVERY 4 HOURS PRN IVP For Pain 07/02/16 20:45 07/09/16 20:44 07/04/16 00:07 Ondansetron HCl (Zofran) 4 mg Q6H PRN IVP Nausea & Vomiting 07/02/16 20:45 08/01/16 20:44 Polyethylene Glycol (Miralax) 17 gm HSPRN PRN ORAL Constipation 07/02/16 20:45 08/01/16 20:44 Zolpidem Tartrate (Ambien) 5 mg HSPRN PRN ORAL Insomnia 07/02/16 20:45 08/01/16 20:44 Allergies: Coded Allergies: No Known Allergies (Unverified , 07/02/16) ROS Limited/Unobtainable: No Constitutional: Reports: no symptoms HEENT: Reports: no symptoms Cardiovascular: Reports: no symptoms Respiratory: Reports: no symptoms Gastrointestinal/Abdominal: Reports: no symptoms Genitourinary: Reports: no symptoms Neurologic/Psychiatric: Reports: no symptoms Subjective 71 YO M admitted with severe anemia. S/P transfusion. Await MRI right foot. Cover for Tate Feliciano Objective Last Vital Signs Date Time Temp Pulse Resp B/P Pulse Ox O2 Delivery O2 Flow Rate FiO2 07/04/16 11:54 97.9 65 16 142/65 99 Room Air General Appearance: WD/WN, no apparent distress, alert EENT: PERRL/EOMI, normal ENT inspection Neck: non-tender, normal alignment, supple Cardiovascular: normal peripheral pulses, normal rate, regular rhythm, no gallop/murmur, no JVD Respiratory/Chest: chest wall non-tender, lungs clear, normal breath sounds, no respiratory distress, no accessory muscle use Abdomen: normal bowel sounds, non tender, soft, no organomegaly, no mass Extremities: normal range of motion Neurologic: heater helper II-XII grossly normal, no motor/sensory deficits Skin: normal pigmentation, warm/dry Laboratory Tests Test 07/04/16 04:50 White Blood Count 7.6 K/UL (4.8-10.8) Red Blood Count 2.79 M/UL (4.70-6.10) L Hemoglobin 7.9 G/DL (14.2-18.0) L Hematocrit 24.6 % (42.0-52.0) L Mean Corpuscular Volume 88 FL (80-99) Mean Corpuscular Hemoglobin 28.4 PG (27.0-31.0) Mean Corpuscular Hemoglobin Concent 32.2 G/DL (32.0-36.0) Red Cell Distribution Width 13.9 % (11.6-14.8) Platelet Count 341 K/UL (150-450) Mean Platelet Volume 5.4 FL (6.5-10.1) L Neutrophils (%) (Auto) % (45.0-75.0) Lymphocytes (%) (Auto) % (20.0-45.0) Monocytes (%) (Auto) % (1.0-10.0) Eosinophils (%) (Auto) % (0.0-3.0) Basophils (%) (Auto) % (0.0-2.0) Erythrocyte Sedimentation Rate 132 MM/HR (0-20) H Sodium Level 137 mEQ/L (135-145) Potassium Level 4.8 mEQ/L (3.4-4.9) Chloride Level 99 mEQ/L (98-107) Carbon Dioxide Level 25 mEQ/L (20-30) Anion Gap 13 (5-15) Blood Urea Nitrogen 33 mg/dL (7-23) H Creatinine 1.4 mg/dL (0.7-1.2) H Estimat Glomerular Filtration Rate 50.2 mL/min (>60) Glucose Level 111 mg/dL (74-106) H Hemoglobin A1c 8.0 % (< 6.0) H Calcium Level 8.4 mg/dL (8.6-10.2) L Iron Level 28 ug/dL (59-158) L Total Iron Binding Capacity 179 ug/dL (250-400) L Percent Iron Saturation 16 % (15-50) Unsaturated Iron Binding 151 ug/dL (112-346) Ferritin 188 ng/mL (10-230) C-Reactive Protein, Quantitative 2.7 mg/dL (< 0.5) H Vitamin B12 Level 111 pg/mL (211-946) L Methylmalonic Acid Pending Homocystine Pending Microbiology Date/Time Source Procedure Growth Status 07/03/16 19:00 Wound Gram Stain - Final Resulted 07/03/16 19:00 Wound Aerobic Culture Pending Resulted 07/03/16 19:00 Wound Anaerobic Culture Pending Resulted Intake and Output 07/03/16 07/04/16 19:00 07:00 Intake Total 360 ml 240 ml Output Total 400 ml 650 ml Balance -40 ml -410 ml Intake Oral 360 ml 240 ml Output Urine Total 400 ml 650 ml Assessment/Plan Problem List: (1) Diabetes mellitus Assessment & Plan: con novolog sliding scale. (2) HTN (hypertension) Assessment & Plan: Cont norvasc (3) Diabetic retinopathy (4) Anemia Assessment & Plan: Severe. Iron deficiency and Vit B12 def. See hematology note. Transfuse 1 unit PRBC today. (5) Diabetic neuropathy associated with type 2 diabetes mellitus Status: not improved GERSON FLOR Jul 04, 2016 14:10
[2016-07-04 16:00] VITALS: BP 148/75
--- NOTE | 2016-07-04 17:11 | General Progress Note ---
Assessment/Plan Assessment/Plan ASSESSMENT: 1. Anemia of kidney disease 2. B12 deficiency. The patient currently on B12 at this time 3. Chronic kidney disease ,Stage 2 4. Decreased hemoglobin and hematocrit, rule out gastrointestinal bleed. 5. Diabetes mellitus. 6. Hypertension. 7. Hypocalcemia. 8. Malnutrition. RECOMMENDATION: 1. Monitor counts. 2. Anemia workup has been ordered. 3. Does not require iron po. 4. I have began B12 injection. 5. folic acid levels to evaluate the patient's anemia. 6. Procrit sq. 7. Consider GI evaluation. 8. Pain control. 9. Blood pressure control. 10. At this time, the patient did not had any evidence of any blood loss. 11. Maintain hemoglobin above 7. Charis Collins M.D. Subjective Constitutional: Reports: no symptoms HEENT: Reports: no symptoms Cardiovascular: Reports: no symptoms Respiratory: Reports: no symptoms Gastrointestinal/Abdominal: Reports: no symptoms Genitourinary: Reports: no symptoms Neurologic/Psychiatric: Reports: no symptoms Endocrine: Reports: no symptoms Hematologic/Lymphatic: Reports: no symptoms Allergies: Coded Allergies: No Known Allergies (Unverified , 07/02/16) Objective Last 24 Hour Vital Signs Date Time Temp Pulse Resp B/P Pulse Ox O2 Delivery O2 Flow Rate FiO2 07/04/16 16:00 98.4 69 20 148/75 98 Room Air 07/04/16 11:54 97.9 65 16 142/65 99 Room Air 07/04/16 08:43 74 157/67 07/04/16 08:39 97.7 74 16 157/67 99 Room Air 07/04/16 04:00 98.1 63 19 149/67 98 Room Air 07/04/16 00:00 98.8 64 20 142/61 98 Room Air 07/03/16 20:00 99.0 68 20 141/70 98 Room Air Intake and Output 07/03/16 07/04/16 19:00 07:00 Intake Total 360 ml 240 ml Output Total 400 ml 650 ml Balance -40 ml -410 ml Intake Oral 360 ml 240 ml Output Urine Total 400 ml 650 ml Laboratory Tests 07/04/16 04:50: White Blood Count 7.6, Red Blood Count 2.79L, Hemoglobin 7.9L, Hematocrit 24.6L , Mean Corpuscular Volume 88, Mean Corpuscular Hemoglobin 28.4, Mean Corpuscular Hemoglobin Concent 32.2, Red Cell Distribution Width 13.9, Platelet Count 341, Mean Platelet Volume 5.4L, Neutrophils (%) (Auto) , Lymphocytes (%) ( Auto) , Monocytes (%) (Auto) , Eosinophils (%) (Auto) , Basophils (%) (Auto) , Erythrocyte Sedimentation Rate 132H, Sodium Level 137, Potassium Level 4.8, Chloride Level 99, Carbon Dioxide Level 25, Anion Gap 13, Blood Urea Nitrogen 33H, Creatinine 1.4H, Estimat Glomerular Filtration Rate 50.2, Glucose Level 111H, Hemoglobin A1c 8.0H, Calcium Level 8.4L, Iron Level 28L, Total Iron Binding Capacity 179L, Percent Iron Saturation 16, Unsaturated Iron Binding 151 , Ferritin 188, C-Reactive Protein, Quantitative 2.7H, Vitamin B12 Level 111L, Methylmalonic Acid [Pending], Homocystine [Pending] Height (Feet): 5 Height (Inches): 9.00 Weight (Pounds): 150 General Appearance: lethargic EENT: TMs normal Neck: supple Cardiovascular: regular rhythm Respiratory/Chest: lungs clear Abdomen: soft Extremities: normal inspection Edema: no edema noted Arm (L), no edema noted Arm (R), no edema noted Leg (L), no edema noted Leg (R), no edema noted Pedal (L), no edema noted Pedal (R), no edema noted Generalized Neurologic: alert Skin: warm/dry Lymphatic: normal anterior cervical (L), normal anterior cervical (R), normal axillary (L), normal axillary (R), normal inguinal (L), normal inguinal (R), normal other, normal posterior cervical (L), normal posterior cervical (R), normal submandibular (L), normal submandibular (R), normal supraclavicular (L), normal supraclavicular (R) CHARIS COLLINS Jul 04, 2016 17:11
[2016-07-04] MEDS ORDERED: Vitamin B12 1000mcg/ml Inj IM ONE (17:15)
[2016-07-04 19:00] VITALS: BP 149/95
[2016-07-05] VITALS (7 sets, daily range): BP systolic 137–163; BP diastolic 59–82
[2016-07-05] MEDS: NovoLOG Insulin Flexpen SUBQ SCH ×4 (06:12→21:00)
[2016-07-05 07:36] LABS: BASOPHILS % (AUTO) 0.9 % (0.0-2.0); EOSINOPHILS % (AUTO) 3.7 % (0.0-3.0); LYMPHOCYTES % (AUTO) 22.5 % (20.0-45.0); MEAN CORPUSCULAR HEMOGLOBIN 28.7 PG (27.0-31.0); MEAN CORPUSCULAR HGB CONC 32.6 G/DL (32.0-36.0); MEAN CORPUSCULAR VOLUME 88 FL (80-99); MEAN PLATELET VOLUME 5.3 FL (6.5-10.1); MONOCYTES % (AUTO) 12.6 % (1.0-10.0); NEUTROPHILS % (AUTO) 60.4 % (45.0-75.0); PLATELET COUNT 338 K/UL (150-450); RED CELL DISTRIBUTION WIDTH 13.7 % (11.6-14.8); WHITE BLOOD COUNT 7.2 K/UL (4.8-10.8)
[2016-07-05 07:48] LABS: CALCIUM 8.6 mg/dL (8.6-10.2); CREATININE 1.4 mg/dL (0.7-1.2); GLOMERULAR FILTRATION RATE 50.2 mL/min (>60); POTASSIUM 4.6 mEQ/L (3.4-4.9)
[2016-07-05] MEDS ORDERED: NS 550ML IV ONE (10:31)
[2016-07-05] MEDS ORDERED: NS 275ml ONE (10:31)
[2016-07-05] MEDS ORDERED: Tubing IV Blood Pump IV ONE (10:31)
[2016-07-05 11:58] LABS: OTHERS PARHOLOGIST COMMENT
--- NOTE | 2016-07-05 13:33 | Pulmonology Progress Note ---
Assessment/Plan Assessment/Plan ASSESSMENT anemia r/o GI bleeding B 12 deficiency anemia iron deficiency anemia DM HTN s/p Right foot open transmetatarsal amputation with possible abscess at the plantar midfoot. PVD PLAN OF CARE MS floor s/p blood transfusion, HH up anemia workup with B 12 deficiency and low iron on vit B 12 replacement as per heme, heme follows ?Venofer - per heme discretion , iron panel low monitor HH closely, transfuse as needed stool OB negative CEA WNL BS management with SS of insulin podiatry follows MRI- R foot pending Venous Duplex BLE negative Arterial Duplex BLE-pending BP management with CCB, optimize as needed pain management bowel regimen case discussed and evaluated by supervising physician Subjective Allergies: Coded Allergies: No Known Allergies (Unverified , 07/02/16) Subjective afebrile, no leukocytosis denies SOB, weakness HH up after transfusion Objective Last 24 Hour Vital Signs Date Time Temp Pulse Resp B/P Pulse Ox O2 Delivery O2 Flow Rate FiO2 07/05/16 12:00 97.7 66 19 148/68 99 Room Air 07/05/16 08:40 73 160/67 07/05/16 08:00 97.7 73 19 160/67 100 Room Air 07/05/16 04:00 97.9 64 18 150/62 97 Room Air 07/05/16 00:00 98.1 58 18 137/59 97 Room Air 07/04/16 22:56 98.1 07/04/16 22:20 100.4 07/04/16 21:51 100.4 07/04/16 19:00 100.4 69 20 149/95 97 Room Air 07/04/16 16:00 98.4 69 20 148/75 98 Room Air Intake and Output 07/04/16 07/05/16 19:00 07:00 Intake Total 1230 ml 240 ml Output Total 1100 ml 1150 ml Balance 130 ml -910 ml Intake Oral 980 ml 240 ml Blood Product 250 ml Output Urine Total 1100 ml 1150 ml # Voids 4 Objective General Appearance: no apparent distress, alert, awake, responsive male Lines, tubes and drains: peripheral HEENT: normocephalic, atraumatic, anicteric, mucous membranes moist, PERRL Neck: non-tender, supple Respiratory/Chest: lungs clear, no respiratory distress, no accessory muscle use Cardiovascular/Chest: normal peripheral pulses, normal rate, no JVD Abdomen: normal bowel sounds, non tender, soft Extremities: no calf tenderness, normal capillary refill, w/chair bound , R foot with all toes amputated Musculoskeletal: atrophy - BLE Microbiology Date/Time Source Procedure Growth Status 07/03/16 19:00 Wound Gram Stain - Final Resulted 07/03/16 19:00 Aerobic Culture - Preliminary Gram Negative Bacillus 1 Gram Negative Bacillus 2 Staphylococcus Species Resulted 07/03/16 19:00 Wound Anaerobic Culture Pending Resulted Laboratory Tests 07/04/16 20:15: Stool Occult Blood Negative 07/05/16 05:35: White Blood Count 7.2, Red Blood Count 3.30L, Hemoglobin 9.5L, Hematocrit 29.1L , Mean Corpuscular Volume 88, Mean Corpuscular Hemoglobin 28.7, Mean Corpuscular Hemoglobin Concent 32.6, Red Cell Distribution Width 13.7, Platelet Count 338, Mean Platelet Volume 5.3L, Neutrophils (%) (Auto) 60.4, Lymphocytes ( %) (Auto) 22.5, Monocytes (%) (Auto) 12.6H, Eosinophils (%) (Auto) 3.7H, Basophils (%) (Auto) 0.9, Sodium Level 140, Potassium Level 4.6, Chloride Level 99, Carbon Dioxide Level 28, Anion Gap 13, Blood Urea Nitrogen 34H, Creatinine 1.4H, Estimat Glomerular Filtration Rate 50.2, Glucose Level 101, Calcium Level 8.6 Current Medications Medications (Trade) Dose Ordered Sig/Daphne Route PRN Reason Start Time Stop Time Status Last Admin Dose Admin Acetaminophen (Tylenol) 650 mg Q4H PRN ORAL fever 07/02/16 20:45 08/01/16 20:44 07/04/16 21:21 Al Hydroxide/Mg Hydroxide (Mylanta II) 30 ml Q6H PRN ORAL dyspepsia 07/02/16 20:45 08/01/16 20:44 Amlodipine Besylate (Norvasc) 5 mg DAILY ORAL 07/02/16 21:30 08/01/16 21:29 07/05/16 08:40 Cyanocobalamin (Vitamin B12) 1,000 mcg QMONTH IM 07/04/16 09:00 08/03/16 08:59 07/04/16 08:46 Dextrose (Dextrose 50%) STAT PRN IV Hypoglycemia 07/02/16 20:45 08/01/16 20:44 Epoetin Augustine (Procrit (for non ESRD use)) 5,000 units WED-WED-WED SUBQ 07/06/16 21:00 08/05/16 20:59 Insulin Aspart (NovoLOG) BEFORE MEALS AND HS SUBQ 07/02/16 22:00 08/01/16 21:59 07/05/16 12:26 Lorazepam (Ativan 2mg/ml 1ml) 0.5 mg Q4H PRN IV For Anxiety 07/02/16 20:45 07/09/16 20:44 Morphine Sulfate (Morphine Sulfate) 1 mg EVERY 4 HOURS PRN IVP For Pain 07/02/16 20:45 07/09/16 20:44 07/04/16 21:21 Ondansetron HCl (Zofran) 4 mg Q6H PRN IVP Nausea & Vomiting 07/02/16 20:45 08/01/16 20:44 Polyethylene Glycol (Miralax) 17 gm HSPRN PRN ORAL Constipation 07/02/16 20:45 08/01/16 20:44 Zolpidem Tartrate (Ambien) 5 mg HSPRN PRN ORAL Insomnia 07/02/16 20:45 08/01/16 20:44 Emily Dowell NP (Vanchtein) Jul 05, 2016 13:33
--- NOTE | 2016-07-05 13:52 | General Progress Note ---
Assessment/Plan Assessment/Plan ASSESSMENT: 1. Anemia of kidney disease 2. B12 deficiency related anemia. Is on B12 IM injection 3. Chronic kidney disease ,Stage 2 4. Decreased hemoglobin and hematocrit, rule out gastrointestinal bleed. 5. Diabetes mellitus. 6. Hypertension. 7. Hypocalcemia. 8. Malnutrition. RECOMMENDATION: 1. Monitor counts. 2. Anemia workup has been ordered. 3. Does not require iron po. 4. Continue monthly B12 injection. 5. folic acid levels to evaluate the patient's anemia. 6. Procrit sq. 7. Consider GI evaluation. 8. Pain control. 9. Maintain hemoglobin above 7. 10. Staff Thank you, Demetrio oCllins MD Subjective Constitutional: Reports: no symptoms HEENT: Reports: no symptoms Cardiovascular: Reports: no symptoms Respiratory: Reports: no symptoms Gastrointestinal/Abdominal: Reports: no symptoms Genitourinary: Reports: no symptoms Neurologic/Psychiatric: Reports: no symptoms Endocrine: Reports: no symptoms Hematologic/Lymphatic: Reports: anemia Allergies: Coded Allergies: No Known Allergies (Unverified , 07/02/16) Subjective stable, no events overnight Objective Last 24 Hour Vital Signs Date Time Temp Pulse Resp B/P Pulse Ox O2 Delivery O2 Flow Rate FiO2 07/05/16 12:00 97.7 66 19 148/68 99 Room Air 07/05/16 08:40 73 160/67 07/05/16 08:00 97.7 73 19 160/67 100 Room Air 07/05/16 04:00 97.9 64 18 150/62 97 Room Air 07/05/16 00:00 98.1 58 18 137/59 97 Room Air 07/04/16 22:56 98.1 07/04/16 22:20 100.4 07/04/16 21:51 100.4 07/04/16 19:00 100.4 69 20 149/95 97 Room Air 07/04/16 16:00 98.4 69 20 148/75 98 Room Air Intake and Output 07/04/16 07/05/16 19:00 07:00 Intake Total 1230 ml 240 ml Output Total 1100 ml 1150 ml Balance 130 ml -910 ml Intake Oral 980 ml 240 ml Blood Product 250 ml Output Urine Total 1100 ml 1150 ml # Voids 4 Laboratory Tests 07/04/16 20:15: Stool Occult Blood Negative 07/05/16 05:35: White Blood Count 7.2, Red Blood Count 3.30L, Hemoglobin 9.5L, Hematocrit 29.1L , Mean Corpuscular Volume 88, Mean Corpuscular Hemoglobin 28.7, Mean Corpuscular Hemoglobin Concent 32.6, Red Cell Distribution Width 13.7, Platelet Count 338, Mean Platelet Volume 5.3L, Neutrophils (%) (Auto) 60.4, Lymphocytes ( %) (Auto) 22.5, Monocytes (%) (Auto) 12.6H, Eosinophils (%) (Auto) 3.7H, Basophils (%) (Auto) 0.9, Sodium Level 140, Potassium Level 4.6, Chloride Level 99, Carbon Dioxide Level 28, Anion Gap 13, Blood Urea Nitrogen 34H, Creatinine 1.4H, Estimat Glomerular Filtration Rate 50.2, Glucose Level 101, Calcium Level 8.6 Height (Feet): 5 Height (Inches): 9.00 Weight (Pounds): 150 General Appearance: no apparent distress EENT: TMs normal Neck: supple Cardiovascular: normal peripheral pulses Respiratory/Chest: normal breath sounds Abdomen: no mass Genitourinary/Rectal: normal rectal exam Extremities: no calf tenderness Edema: 1+ Leg (L), 1+ Leg (R) Edema: mild edema Neurologic: alert Demetrio Collins Jul 05, 2016 13:51
--- NOTE | 2016-07-05 14:38 | Internal Med Progress Note ---
Subjective Date of Service: Jul 05, 2016 Physician Name Gerson Flor Attending Physician Saran Feliciano MD Current Medications Medications (Trade) Dose Ordered Sig/Daphne Route PRN Reason Start Time Stop Time Status Last Admin Dose Admin Acetaminophen (Tylenol) 650 mg Q4H PRN ORAL fever 07/02/16 20:45 08/01/16 20:44 07/04/16 21:21 Al Hydroxide/Mg Hydroxide (Mylanta II) 30 ml Q6H PRN ORAL dyspepsia 07/02/16 20:45 08/01/16 20:44 Amlodipine Besylate (Norvasc) 5 mg DAILY ORAL 07/02/16 21:30 08/01/16 21:29 07/05/16 08:40 Cyanocobalamin (Vitamin B12) 1,000 mcg QMONTH IM 07/04/16 09:00 08/03/16 08:59 07/04/16 08:46 Dextrose (Dextrose 50%) STAT PRN IV Hypoglycemia 07/02/16 20:45 08/01/16 20:44 Epoetin Augustine (Procrit (for non ESRD use)) 5,000 units MON-WED-WED SUBQ 07/06/16 21:00 08/05/16 20:59 Insulin Aspart (NovoLOG) BEFORE MEALS AND HS SUBQ 07/02/16 22:00 08/01/16 21:59 07/05/16 12:26 Lorazepam (Ativan 2mg/ml 1ml) 0.5 mg Q4H PRN IV For Anxiety 07/02/16 20:45 07/09/16 20:44 Morphine Sulfate (Morphine Sulfate) 1 mg EVERY 4 HOURS PRN IVP For Pain 07/02/16 20:45 07/09/16 20:44 07/04/16 21:21 Ondansetron HCl (Zofran) 4 mg Q6H PRN IVP Nausea & Vomiting 07/02/16 20:45 08/01/16 20:44 Polyethylene Glycol (Miralax) 17 gm HSPRN PRN ORAL Constipation 07/02/16 20:45 08/01/16 20:44 Zolpidem Tartrate (Ambien) 5 mg HSPRN PRN ORAL Insomnia 07/02/16 20:45 08/01/16 20:44 Allergies: Coded Allergies: No Known Allergies (Unverified , 07/02/16) ROS Limited/Unobtainable: No Constitutional: Reports: no symptoms HEENT: Reports: no symptoms Cardiovascular: Reports: no symptoms Respiratory: Reports: no symptoms Gastrointestinal/Abdominal: Reports: no symptoms Genitourinary: Reports: no symptoms Neurologic/Psychiatric: Reports: no symptoms Subjective 71 YO M admitted with severe anemia. S/P transfusion. Await MRI right foot. Cover for Int Ochoa-Dr Feliciano Objective Last Vital Signs Date Time Temp Pulse Resp B/P Pulse Ox O2 Delivery O2 Flow Rate FiO2 07/05/16 12:00 97.7 66 19 148/68 99 Room Air Laboratory Tests Test 07/04/16 20:15 07/05/16 05:35 Stool Occult Blood Negative (NEGATIVE) White Blood Count 7.2 K/UL (4.8-10.8) Red Blood Count 3.30 M/UL (4.70-6.10) L Hemoglobin 9.5 G/DL (14.2-18.0) L Hematocrit 29.1 % (42.0-52.0) L Mean Corpuscular Volume 88 FL (80-99) Mean Corpuscular Hemoglobin 28.7 PG (27.0-31.0) Mean Corpuscular Hemoglobin Concent 32.6 G/DL (32.0-36.0) Red Cell Distribution Width 13.7 % (11.6-14.8) Platelet Count 338 K/UL (150-450) Mean Platelet Volume 5.3 FL (6.5-10.1) L Neutrophils (%) (Auto) 60.4 % (45.0-75.0) Lymphocytes (%) (Auto) 22.5 % (20.0-45.0) Monocytes (%) (Auto) 12.6 % (1.0-10.0) H Eosinophils (%) (Auto) 3.7 % (0.0-3.0) H Basophils (%) (Auto) 0.9 % (0.0-2.0) Sodium Level 140 mEQ/L (135-145) Potassium Level 4.6 mEQ/L (3.4-4.9) Chloride Level 99 mEQ/L (98-107) Carbon Dioxide Level 28 mEQ/L (20-30) Anion Gap 13 (5-15) Blood Urea Nitrogen 34 mg/dL (7-23) H Creatinine 1.4 mg/dL (0.7-1.2) H Estimat Glomerular Filtration Rate 50.2 mL/min (>60) Glucose Level 101 mg/dL (74-106) Calcium Level 8.6 mg/dL (8.6-10.2) Microbiology Date/Time Source Procedure Growth Status 07/03/16 19:00 Wound Gram Stain - Final Resulted 07/03/16 19:00 Aerobic Culture - Preliminary Gram Negative Bacillus 1 Gram Negative Bacillus 2 Staphylococcus Species Resulted 07/03/16 19:00 Wound Anaerobic Culture Pending Resulted Intake and Output 07/04/16 07/05/16 19:00 07:00 Intake Total 1230 ml 240 ml Output Total 1100 ml 1150 ml Balance 130 ml -910 ml Intake Oral 980 ml 240 ml Blood Product 250 ml Output Urine Total 1100 ml 1150 ml # Voids 4 Objective General Appearance: WD/WN, no apparent distress, alert EENT: PERRL/EOMI, normal ENT inspection Neck: non-tender, normal alignment, supple Cardiovascular: normal peripheral pulses, normal rate, regular rhythm, no gallop/murmur, no JVD Respiratory/Chest: chest wall non-tender, lungs clear, normal breath sounds, no respiratory distress, no accessory muscle use Abdomen: normal bowel sounds, non tender, soft, no organomegaly, no mass Extremities: normal range of motion 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 (2) HTN (hypertension) Assessment & Plan: Cont norvasc (3) Diabetic retinopathy (4) Anemia Assessment & Plan: Severe. Iron deficiency and Vit B12 def. See hematology note. S/P Transfusion 2 unit PRBC.. Await GI consult-Dr Farris (5) Diabetic neuropathy associated with type 2 diabetes mellitus Status: progressing GERSON FLOR Jul 05, 2016 14:38
[2016-07-05] MEDS ORDERED: Nulytely 4L ORAL ONE (16:15)
[2016-07-05] MEDS ORDERED: Bisacodyl EC 5mg tab ORAL ONE (16:15)
--- NOTE | 2016-07-05 21:29 | Consultation ---
DATE OF CONSULTATION: 07/05/2016 GASTROENTEROLOGY CONSULTATION CHIEF COMPLAINT: Anemia. HISTORY OF PRESENT ILLNESS: The patient is a very pleasant [id number], admitted to the hospital with anemia and GI consult was requested for evaluation of cause of anemia. The patient denies any obvious GI bleeding. No prior history of endoscopy. No colonoscopy. He admits to about 30 pounds of unwanted weight loss. PAST MEDICAL HISTORY: 1. Hypertension. 2. Diabetes. 3. Peripheral vascular disease with a recent toe amputation on the right foot. PAST SURGICAL HISTORY: Foot amputation. MEDICATIONS: Please see medication reconciliation list. ALLERGIES: No known drug allergy. SOCIAL HISTORY: There is no history of tobacco, alcohol, or IV drug abuse. FAMILY HISTORY: Noncontributory. REVIEW OF SYSTEMS: A 10-point review of system was performed and pertinent positives in the history of present illness. PHYSICAL EXAMINATION: VITAL SIGNS: Temperature 97.7 degrees, pulse 68, respirations 19, and blood pressure is 148/68. HEENT: Normocephalic and atraumatic. Sclerae anicteric. NECK: Supple. No evidence of lymphadenopathy. CARDIOVASCULAR: Regular rate and rhythm. Plus S1 and S2. LUNGS: Decreased breath sounds bilaterally on supine exam. ABDOMEN: Soft and nontender. No rebound. No guarding. No peritoneal sign. EXTREMITIES: No cyanosis, no clubbing, and no edema. The patient had right foot covered by bandage from recent surgery. LABORATORY DATA: White count 7.6, hemoglobin 7.9, hematocrit 24.6, and platelet count is 341,000. ASSESSMENT AND PLAN: This is a 71-year-old male with anemia and weight loss. Plan to do an endoscopy and colonoscopy tomorrow. Anemia workup. Cancer workup. If the endoscopy and colonoscopy is negative, the patient most probably will benefit from a CT of the abdomen and pelvis. Shyam Farris M.D. DR: FREYA JOB#: [id number] CC:
[2016-07-05] MEDS: Iron Sucrose 100 MG in NS 110 ML IVPB SCH (21:39)
--- NOTE | 2016-07-05 22:17 | Podiatric Progress Note ---
Assessment/Plan Patient Chandan Nielsen is a 71 year old male who was admitted on Jul 02, 2016 at 18:29 with right side open TMA stump Problems: (1) Open wound of right foot (2) Diabetes mellitus with peripheral angiopathy (3) Diabetic neuropathy associated with type 2 diabetes mellitus Assessment/Plan Possible abscess at the right plantar midfoot. Patient had fever of 100.4 last night which has since resolved - Awaiting MRI - Awaiting arterial studies - Follow up final culture results - Continue daily dressing changes - Partial weight bearing on right foot as tolerated Subjective Reason for consult Right foot open TMA Allergies: Coded Allergies: No Known Allergies (Unverified , 07/02/16) Subjective Patient experienced a fever last night. No nausea or vomiting reported. Pain at plantar foot with pressure Objective Exam Last 24 Hour Vital Signs Date Time Temp Pulse Resp B/P Pulse Ox O2 Delivery O2 Flow Rate FiO2 07/05/16 20:00 97.9 72 20 163/79 98 Room Air 07/05/16 16:00 97.9 69 19 158/82 98 Room Air 07/05/16 12:00 97.7 66 19 148/68 99 Room Air 07/05/16 08:40 73 160/67 07/05/16 08:00 97.7 73 19 160/67 100 Room Air 07/05/16 04:00 97.9 64 18 150/62 97 Room Air 07/05/16 00:00 98.1 58 18 137/59 97 Room Air 07/04/16 22:56 98.1 07/04/16 22:20 100.4 Laboratory Tests Test 07/05/16 05:35 07/05/16 18:15 White Blood Count 7.2 K/UL (4.8-10.8) Red Blood Count 3.30 M/UL (4.70-6.10) L Hemoglobin 9.5 G/DL (14.2-18.0) L Hematocrit 29.1 % (42.0-52.0) L Mean Corpuscular Volume 88 FL (80-99) Mean Corpuscular Hemoglobin 28.7 PG (27.0-31.0) Mean Corpuscular Hemoglobin Concent 32.6 G/DL (32.0-36.0) Red Cell Distribution Width 13.7 % (11.6-14.8) Platelet Count 338 K/UL (150-450) Mean Platelet Volume 5.3 FL (6.5-10.1) L Neutrophils (%) (Auto) 60.4 % (45.0-75.0) Lymphocytes (%) (Auto) 22.5 % (20.0-45.0) Monocytes (%) (Auto) 12.6 % (1.0-10.0) H Eosinophils (%) (Auto) 3.7 % (0.0-3.0) H Basophils (%) (Auto) 0.9 % (0.0-2.0) Sodium Level 140 mEQ/L (135-145) Potassium Level 4.6 mEQ/L (3.4-4.9) Chloride Level 99 mEQ/L (98-107) Carbon Dioxide Level 28 mEQ/L (20-30) Anion Gap 13 (5-15) Blood Urea Nitrogen 34 mg/dL (7-23) H Creatinine 1.4 mg/dL (0.7-1.2) H Estimat Glomerular Filtration Rate 50.2 mL/min (>60) Glucose Level 101 mg/dL (74-106) Calcium Level 8.6 mg/dL (8.6-10.2) Stool Occult Blood Pending Microbiology Date/Time Source Procedure Growth Status 07/03/16 19:00 Wound Gram Stain - Final Resulted 07/03/16 19:00 Aerobic Culture - Preliminary Gram Negative Bacillus 1 Gram Negative Bacillus 2 Staphylococcus Species Resulted 07/03/16 19:00 Wound Anaerobic Culture Pending Resulted Exam Narrative Dressings are clean, dry, and in tact. Dermatological Wound Assessment : Exudate Amount: Moderate Curry Ramos DPM Jul 05, 2016 22:17
[2016-07-06] VITALS (13 sets, daily range): BP systolic 85–167; BP diastolic 32–78
[2016-07-06] MEDS: NovoLOG Insulin Flexpen SUBQ SCH ×4 (06:18→20:59)
--- NOTE | 2016-07-06 07:04 | Anethesia Preoperative Eval ---
Anesthesia Pre-op PMH/ROS General Date of Evaluation: Jul 06, 2016 Anesthesiologist: Jignesh ASA Score: ASA 3 Mallampati Score Class I : Soft palate, uvula, fauces, pillars visible Class II: Soft palate, uvula, fauces visible Class III: Soft palate, base of uvula visible Class IV: Only hard plate visible Mallampati Classification: Class II Surgeon: Brenton Diagnosis: GI bleed Surgical Procedure: EGD Anesthesia History: none Family History: no anesthesia problems Allergies: Coded Allergies: No Known Allergies (Unverified , 07/02/16) Medications: see eMAR Past Medical History Cardiovascular: Reports: HTN, Denies: CAD, AL, arrhythmia, other, valve dz Pulmonary: Denies: COPD, CHUN, asthma, other Gastrointestinal/Genitourinary: Reports: GERD, Denies: CRI, ESRD, other Neurologic/Psychiatric: Reports: depression/anxiety, Denies: CVA, TIA, dementia, other Endocrine: Reports: DM, Denies: hypothyroidism, other, steroids HEENT: Denies: KALTAG (L), KALTAG (R), cataract (L), cataract (R), glaucoma, other Hematology/Immune: Denies: DVT, anemia, bleeding disorder, other Musculoskeletal/Integumentary: Denies: DDD, DJD, OA, RA, edema, other PSxH Narrative: Right toe amputation Anesthesia Pre-op Phys. Exam Physician Exam Last Vital Signs Date Time Temp Pulse Resp B/P Pulse Ox O2 Delivery O2 Flow Rate FiO2 07/06/16 04:00 98.1 60 20 151/54 97 Room Air Constitutional: NAD Cardiovascular: RRR Respiratory: CTA Airway Exam Mallampati Score: Class II MO: full ROM: full Anesthesia Pre-op A/P Labs Hematology Test 07/06/16 05:50 White Blood Count Pending Red Blood Count Pending Hemoglobin Pending Hematocrit Pending Mean Corpuscular Volume Pending Mean Corpuscular Hemoglobin Pending Mean Corpuscular Hemoglobin Concent Pending Red Cell Distribution Width Pending Platelet Count Pending Mean Platelet Volume Pending Neutrophils (%) (Auto) Pending Lymphocytes (%) (Auto) Pending Monocytes (%) (Auto) Pending Eosinophils (%) (Auto) Pending Basophils (%) (Auto) Pending Chemistry Test 2/20/17 05:50 Sodium Level Pending Potassium Level Pending Chloride Level Pending Carbon Dioxide Level Pending Blood Urea Nitrogen Pending Creatinine Pending Estimat Glomerular Filtration Rate Pending Glucose Level Pending Calcium Level Pending CA 19-9 Antigen Pending Studies Pre-op Studies: EKG - sr Risk Assessment & Plan Assessment: ASA III Plan: MAC Status Change Before Surgery: No Pre-Antibiotics Drug: N/A JOSS CARROLL M.D. Jul 06, 2016 07:04
[2016-07-06 07:10] LABS: BASOPHILS % (AUTO) 0.6 % (0.0-2.0); EOSINOPHILS % (AUTO) 2.6 % (0.0-3.0); LYMPHOCYTES % (AUTO) 16.3 % (20.0-45.0); MEAN CORPUSCULAR HEMOGLOBIN 28.1 PG (27.0-31.0); MEAN CORPUSCULAR VOLUME 88 FL (80-99); MEAN PLATELET VOLUME 5.3 FL (6.5-10.1); MONOCYTES % (AUTO) 11.5 % (1.0-10.0); NEUTROPHILS % (AUTO) 69.1 % (45.0-75.0); PLATELET COUNT 334 K/UL (150-450); RED BLOOD COUNT 3.42 M/UL (4.70-6.10); RED CELL DISTRIBUTION WIDTH 13.6 % (11.6-14.8); WHITE BLOOD COUNT 8.2 K/UL (4.8-10.8)
[2016-07-06 07:36] LABS: ANION GAP 13 (5-15); CALCIUM 8.6 mg/dL (8.6-10.2); CARBON DIOXIDE 26 mEQ/L (20-30); CHLORIDE 100 mEQ/L (98-107); CREATININE 1.2 mg/dL (0.7-1.2); GLOMERULAR FILTRATION RATE > 60 mL/min (>60); HEMOLYSIS 11; POTASSIUM 4.7 mEQ/L (3.4-4.9); SODIUM 139 mEQ/L (135-145)
[2016-07-06] MEDS ORDERED: Fleet's Enema 133ml RECTAL ONE (08:00)
[2016-07-06 10:13] LABS: HOMOCYSTINE QUANT 24.5 umol/L (0.0-15.0)
--- NOTE | 2016-07-06 10:20 | Immediate Post-Op Evaluation ---
Immediate Post-Op Evalulation Immediate Post-Op Evalulation Procedure: EGD and colonoscopy Date of Evaluation: Jul 06, 2016 Time of Evaluation: 13:17 IV Fluids: 500 Blood Products: 0 Estimated Blood Loss: 0 Urinary Output: 0 Blood Pressure Systolic: 95 Blood Pressure Diastolic: 42 Pulse Rate: 50 Respiratory Rate: 17 O2 Sat by Pulse Oximetry: 100 Temperature (Fahrenheit): 97.2 Pain Score (1-10): 0 Nausea: No Vomiting: No Complications 0 Patient Status: awake, reacts, patent, none Hydration Status: adequate Drug: N/A JOSS CARROLL M.D. Jul 06, 2016 10:20
--- NOTE | 2016-07-06 10:20 | 48 Hour Post Anesthesia Eval ---
Post Anesthesia Evaluation Procedure: EGD and colonoscopy Date of Evaluation: Jul 06, 2016 Blood Pressure Systolic: 106 0: 71 Pulse Rate: 58 Respiratory Rate: 17 O2 Sat by Pulse Oximetry: 100 Airway: patent Nausea: No Vomiting: No Pain Intensity: 0 Hydration Status: adequate Cardiopulmonary Status: at baseline Mental Status/LOC: patient returned to baseline Post-Anesthesia Complications: 0 Follow-up care needed: N/A - furthr care as per primary JOSS Mclean M.D. Jul 06, 2016 10:20
[2016-07-06] MEDS ORDERED: LR 1000ml 1,000 ML IVLG SCH (10:21)
[2016-07-06] MEDS ORDERED: DiphenhydrAMINE 50mg/ml Inj IVP PRN (10:30)
[2016-07-06] MEDS ORDERED: Labetalol 5mg/ml 20ml vial IV PRN (10:30)
--- NOTE | 2016-07-06 10:51 | Internal Med Progress Note ---
Subjective Date of Service: Jul 06, 2016 Physician Name Gerson Flor Attending Physician Saran Feliciano MD Current Medications Medications (Trade) Dose Ordered Sig/Daphne Route PRN Reason Start Time Stop Time Status Last Admin Dose Admin Acetaminophen (Tylenol) 650 mg Q4H PRN ORAL fever 07/02/16 20:45 08/01/16 20:44 07/04/16 21:21 Acetaminophen (Tylenol) 650 mg Q4H PRN ORAL Mild Pain (Pain Scale 1-3) 07/06/16 10:30 UNV Al Hydroxide/Mg Hydroxide (Mylanta II) 30 ml Q6H PRN ORAL dyspepsia 07/02/16 20:45 08/01/16 20:44 Amlodipine Besylate (Norvasc) 5 mg DAILY ORAL 07/02/16 21:30 08/01/16 21:29 07/06/16 09:04 Cyanocobalamin (Vitamin B12) 1,000 mcg QMONTH IM 07/04/16 09:00 08/03/16 08:59 07/04/16 08:46 Dextrose (Dextrose 50%) STAT PRN IV Hypoglycemia 07/02/16 20:45 08/01/16 20:44 Diphenhydramine HCl 25 mg 25 mg Q15M PRN IVP Itching 07/06/16 10:30 UNV Epoetin Augustine 5000 units 5,000 units WED-WED-WED SUBQ 07/06/16 21:00 08/05/16 20:59 Hydralazine HCl (Apresoline) 5 mg Q30M PRN IV SBP>160 OR___/DBP>90 OR___ 07/06/16 10:30 UNV Insulin Aspart (NovoLOG) BEFORE MEALS AND HS SUBQ 07/02/16 22:00 08/01/16 21:59 07/05/16 17:11 Iron Sucrose/ Sodium Chloride (Venofer/Sodium Chloride) 115 ml @ 230 mls/hr BEDTIME IVPB 07/05/16 21:00 07/09/16 21:29 07/05/16 21:39 Labetalol HCl (Normodyne) 5 mg Q10M PRN IV SBP>160 or____/ DBP>90 or 07/06/16 10:30 07/07/16 10:29 UNV Lactated Ringer's (Lactated Ringer's 1000ml) 1,000 ml @ 10 mls/hr Q24H IVLG 07/06/16 10:21 07/06/16 12:20 UNV Lorazepam (Ativan 2mg/ml 1ml) 0.5 mg Q4H PRN IV For Anxiety 07/02/16 20:45 07/09/16 20:44 Morphine Sulfate (Morphine Sulfate) 1 mg EVERY 4 HOURS PRN IVP For Pain 07/02/16 20:45 07/09/16 20:44 07/04/16 21:21 Ondansetron HCl (Zofran) 4 mg Q1H PRN IVP Nausea & Vomiting 07/06/16 10:30 UNV Ondansetron HCl (Zofran) 4 mg Q6H PRN IVP Nausea & Vomiting 07/02/16 20:45 08/01/16 20:44 Polyethylene Glycol (Miralax) 17 gm HSPRN PRN ORAL Constipation 07/02/16 20:45 08/01/16 20:44 Zolpidem Tartrate (Ambien) 5 mg HSPRN PRN ORAL Insomnia 07/02/16 20:45 08/01/16 20:44 Allergies: Coded Allergies: No Known Allergies (Unverified , 07/02/16) ROS Limited/Unobtainable: No Constitutional: Reports: no symptoms HEENT: Reports: no symptoms Cardiovascular: Reports: no symptoms Respiratory: Reports: no symptoms Gastrointestinal/Abdominal: Reports: no symptoms Genitourinary: Reports: no symptoms Neurologic/Psychiatric: Reports: no symptoms Subjective 71 YO M admitted with severe anemia. S/P transfusion. Await MRI right foot. Cover for Int Alice Feliciano Objective Last Vital Signs Date Time Temp Pulse Resp B/P Pulse Ox O2 Delivery O2 Flow Rate FiO2 07/06/16 09:04 67 167/59 07/06/16 08:21 97.9 20 99 Room Air Laboratory Tests Test 07/05/16 18:15 07/06/16 05:50 Stool Occult Blood Pending White Blood Count 8.2 K/UL (4.8-10.8) Red Blood Count 3.42 M/UL (4.70-6.10) L Hemoglobin 9.6 G/DL (14.2-18.0) L Hematocrit 30.0 % (42.0-52.0) L Mean Corpuscular Volume 88 FL (80-99) Mean Corpuscular Hemoglobin 28.1 PG (27.0-31.0) Mean Corpuscular Hemoglobin Concent 32.0 G/DL (32.0-36.0) Red Cell Distribution Width 13.6 % (11.6-14.8) Platelet Count 334 K/UL (150-450) Mean Platelet Volume 5.3 FL (6.5-10.1) L Neutrophils (%) (Auto) 69.1 % (45.0-75.0) Lymphocytes (%) (Auto) 16.3 % (20.0-45.0) L Monocytes (%) (Auto) 11.5 % (1.0-10.0) H Eosinophils (%) (Auto) 2.6 % (0.0-3.0) Basophils (%) (Auto) 0.6 % (0.0-2.0) Sodium Level 139 mEQ/L (135-145) Potassium Level 4.7 mEQ/L (3.4-4.9) Chloride Level 100 mEQ/L (98-107) Carbon Dioxide Level 26 mEQ/L (20-30) Anion Gap 13 (5-15) Blood Urea Nitrogen 31 mg/dL (7-23) H Creatinine 1.2 mg/dL (0.7-1.2) Estimat Glomerular Filtration Rate > 60 mL/min (>60) Glucose Level 172 mg/dL (74-106) H Calcium Level 8.6 mg/dL (8.6-10.2) CA 19-9 Antigen 20.11 U/mL (< 37) Microbiology Date/Time Source Procedure Growth Status 07/03/16 19:00 Wound Gram Stain - Final Resulted 07/03/16 19:00 Aerobic Culture - Preliminary Klebsiella Pneumoniae Enterobacter Cloacae Complex Staphylococcus Aureus Resulted 07/03/16 19:00 Wound Anaerobic Culture Pending Resulted Intake and Output 07/05/16 07/06/16 19:00 07:00 Intake Total 800 ml 115 ml Output Total 300 ml Balance 800 ml -185 ml Intake Oral 800 ml IV Total 115 ml Output Urine Total 300 ml # Voids 3 # Bowel Movements 12 Objective General Appearance: WD/WN, no apparent distress, alert EENT: PERRL/EOMI, normal ENT inspection Neck: non-tender, normal alignment, supple Cardiovascular: normal peripheral pulses, normal rate, regular rhythm, no gallop/murmur, no JVD Respiratory/Chest: chest wall non-tender, lungs clear, normal breath sounds, no respiratory distress, no accessory muscle use Abdomen: normal bowel sounds, non tender, soft, no organomegaly, no mass Extremities: normal range of motion 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 (2) HTN (hypertension) Assessment & Plan: Cont norvasc (3) Diabetic retinopathy (4) Anemia Assessment & Plan: Severe. Iron deficiency and Vit B12 def. See hematology note. S/P Transfusion 2 unit PRBC.. Await GI consult-Dr Farris (5) Diabetic neuropathy associated with type 2 diabetes mellitus (6) Diabetic foot ulcer Assessment & Plan: See podiatry note. Await MRI right foot. (7) Open wound of right foot Status: progressing GERSON FLOR Jul 06, 2016 10:51
[2016-07-06] MEDS ORDERED: Lidocaine 1% MPF 10mg/ml 5ml ONE (12:00)
[2016-07-06] MEDS ORDERED: LR 1000ml ONE (12:00)
[2016-07-06] MEDS ORDERED: Propofol 10mg/ml 20ml IV ONE (12:00)
--- NOTE | 2016-07-06 12:07 | Pre-Procedure Note/Attestation ---
Pre-Procedure Note/Attestation Complete Prior to Procedure Planned Procedure: not applicable Procedure Narrative: egd/colon Indications for Procedure Pre-Operative Diagnosis: anemia Attestation I attest that I discussed the nature of the procedure; its benefits; risks and complications; and alternatives (and the risks and benefits of such alternatives ), prior to the procedure, with the patient (or the patient's legal leather goods sales representative). I attest that, if there was a reasonable possibility of needing a blood transfusion, the patient (or the patient's legal leather goods sales representative) was given the [facility] standardized written summary, pursuant to the [place] Blood Safety Act ([place] Health and Safety Code # 1645, as amended). I attest that I re-evaluated the patient just prior to the surgery and that there has been no change in the patient's H&P, except as documented below: LARS SANTIZO Jul 06, 2016 12:07
[2016-07-06] MEDS ORDERED: NS 550ML IV ONE ×2 (12:15→13:00)
--- NOTE | 2016-07-06 13:23 | Endoscopy Procedure Note ---
Endoscopy Procedure Note Indication for Procedure: anemia Procedures Performed: EGD, colonoscopy Operative Findings/Diagnosis: gastritis, colon polyp Specimen: yes Pt Tolerated Procedure Well: Yes Estimated Blood Loss: none Anesthesiologist: maddie Anesthesia: MAC Implant(s) used?: No 50 yrs or older w/o bx or poly: Not Applicable 10yrs. F/U not recommended: Not Applicable LARS SANTIZO Jul 06, 2016 13:23
--- NOTE | 2016-07-06 16:04 | Diagnostic Imaging Report ---
Indication: Pain Technique: Right foot imaging utilizing multiplanar T1 fast spin-echo, proton and T2 fast spin-echo with fat saturation, and STIR. Comparison: None Findings: The patient is had a transmetatarsal amputation in the past. There is bone marrow edema characterized by fairly intense low T1 and high T2 signal involving the stump of the first metatarsal with involvement about 1.3 cm length of the distal stump. Findings are consistent with acute osteomyelitis. Less prominent but similar signal abnormalities noted at the tips of the second through fifth metatarsal stumps as well consistent with osteomyelitis. There is ulceration and adjacent subcutaneous edema involving the soft tissues at the apex of the stump consistent with cellulitis and infection. Impression: Acute osteomyelitis involving the transmetatarsal stump as described above. The most involved level is the first metatarsal tip but there is also evidence of involvement of the second through fifth stumps as well.
--- NOTE | 2016-07-06 16:16 | Podiatric Progress Note ---
Assessment/Plan Patient Chandan Nielsen is a 71 year old male who was admitted on Jul 02, 2016 at 18:29 with right foot ulcer Problems: (1) Status post transmetatarsal amputation of right foot (2) Diabetes mellitus with peripheral angiopathy (3) Diabetes mellitus (4) Open wound of right foot Assessment/Plan - Debrided the skin at the plantar foot. Patient has two areas of skin necrosis. No purulence or malodor noted from these areas - Start daily dressing changes with Santyl - Started patient on Levaquin per culture results - MRI taken. Awaiting final report Subjective Reason for consult Right foot ulcer Allergies: Coded Allergies: No Known Allergies (Unverified , 07/02/16) Subjective No nausea, vomiting, fevers, or chills reported. Objective Exam Last 24 Hour Vital Signs Date Time Temp Pulse Resp B/P Pulse Ox O2 Delivery O2 Flow Rate FiO2 07/06/16 13:47 69 21 131/48 98 Room Air 07/06/16 13:40 98.0 66 24 137/49 100 Room Air 07/06/16 13:30 66 18 145/43 100 Room Air 07/06/16 13:25 57 18 99/51 100 Nasal Cannula 3.0 07/06/16 13:20 59 14 106/45 100 Nasal Cannula 3.0 07/06/16 13:18 58 17 100 07/06/16 13:17 50 17 100 07/06/16 13:15 53 10 100/51 100 Nasal Cannula 3.0 07/06/16 13:13 98.4 50 12 85/32 100 Nasal Cannula 3.0 07/06/16 11:54 97.2 73 20 164/78 100 Room Air 07/06/16 09:04 67 167/59 07/06/16 08:21 97.9 67 20 167/59 99 Room Air 07/06/16 04:00 98.1 60 20 151/54 97 Room Air 07/06/16 00:00 98.2 76 20 155/69 98 Room Air 07/05/16 22:00 155/71 07/05/16 20:00 97.9 72 20 163/79 98 Room Air Laboratory Tests Test 07/05/16 18:15 07/06/16 05:50 Stool Occult Blood Negative (NEGATIVE) White Blood Count 8.2 K/UL (4.8-10.8) Red Blood Count 3.42 M/UL (4.70-6.10) L Hemoglobin 9.6 G/DL (14.2-18.0) L Hematocrit 30.0 % (42.0-52.0) L Mean Corpuscular Volume 88 FL (80-99) Mean Corpuscular Hemoglobin 28.1 PG (27.0-31.0) Mean Corpuscular Hemoglobin Concent 32.0 G/DL (32.0-36.0) Red Cell Distribution Width 13.6 % (11.6-14.8) Platelet Count 334 K/UL (150-450) Mean Platelet Volume 5.3 FL (6.5-10.1) L Neutrophils (%) (Auto) 69.1 % (45.0-75.0) Lymphocytes (%) (Auto) 16.3 % (20.0-45.0) L Monocytes (%) (Auto) 11.5 % (1.0-10.0) H Eosinophils (%) (Auto) 2.6 % (0.0-3.0) Basophils (%) (Auto) 0.6 % (0.0-2.0) Sodium Level 139 mEQ/L (135-145) Potassium Level 4.7 mEQ/L (3.4-4.9) Chloride Level 100 mEQ/L (98-107) Carbon Dioxide Level 26 mEQ/L (20-30) Anion Gap 13 (5-15) Blood Urea Nitrogen 31 mg/dL (7-23) H Creatinine 1.2 mg/dL (0.7-1.2) Estimat Glomerular Filtration Rate > 60 mL/min (>60) Glucose Level 172 mg/dL (74-106) H Calcium Level 8.6 mg/dL (8.6-10.2) CA 19-9 Antigen 20.11 U/mL (< 37) Microbiology Date/Time Source Procedure Growth Status 07/03/16 19:00 Wound Gram Stain - Final Resulted 07/03/16 19:00 Aerobic Culture - Preliminary Klebsiella Pneumoniae Enterobacter Cloacae Complex Staphylococcus Aureus Resulted 07/03/16 19:00 Wound Anaerobic Culture Pending Resulted Exam Narrative Patient resting comfortably in bed. Right foot with open TMA site and 50% fibrotic tissue. No purulence or malodor noted. Serous drainage present. Plantar aspect of right foot with two areas of necrotic tissue with surrounding exfoliating skin. No drainage from these areas. Pain with palpation of the plantar right midfoot Dermatological Wound Assessment : Exudate Amount: Moderate Curry Ramos DPM Jul 06, 2016 16:16
[2016-07-06] MEDS: Levofloxacin 500mg tab ORAL SCH (17:14)
--- NOTE | 2016-07-06 18:10 | General Progress Note ---
Assessment/Plan Assessment/Plan ASSESSMENT: 1. Anemia of kidney disease 2. B12 deficiency. The patient currently on B12 at this time 3. Chronic kidney disease ,Stage 2 4. Decreased hemoglobin and hematocrit, rule out gastrointestinal bleed. 5. Diabetes mellitus. 6. Hypertension. 7. Hypocalcemia. 8. Malnutrition. RECOMMENDATION: 1. Monitor counts. 2. Anemia workup has been ordered. 3. Does not require iron po. 4. I have began B12 injection. 5. folic acid levels to evaluate the patient's anemia. 6. Procrit sq. 7. Consider GI evaluation. 8. Pain control. 9. Blood pressure control. 10. At this time, the patient did not had any evidence of any blood loss. 11. Maintain hemoglobin above 7. Charis Collins M.D. Subjective Constitutional: Reports: no symptoms HEENT: Reports: no symptoms Cardiovascular: Reports: no symptoms Respiratory: Reports: no symptoms Gastrointestinal/Abdominal: Reports: no symptoms Genitourinary: Reports: no symptoms Neurologic/Psychiatric: Reports: no symptoms Endocrine: Reports: no symptoms Hematologic/Lymphatic: Reports: no symptoms Allergies: Coded Allergies: No Known Allergies (Unverified , 07/02/16) Objective Last 24 Hour Vital Signs Date Time Temp Pulse Resp B/P Pulse Ox O2 Delivery O2 Flow Rate FiO2 07/06/16 16:00 75 18 152/69 97 Room Air 07/06/16 13:47 69 21 131/48 98 Room Air 07/06/16 13:40 98.0 66 24 137/49 100 Room Air 07/06/16 13:30 66 18 145/43 100 Room Air 07/06/16 13:25 57 18 99/51 100 Nasal Cannula 3.0 07/06/16 13:20 59 14 106/45 100 Nasal Cannula 3.0 07/06/16 13:18 58 17 100 07/06/16 13:17 50 17 100 07/06/16 13:15 53 10 100/51 100 Nasal Cannula 3.0 07/06/16 13:13 98.4 50 12 85/32 100 Nasal Cannula 3.0 07/06/16 11:54 97.2 73 20 164/78 100 Room Air 07/06/16 09:04 67 167/59 07/06/16 08:21 97.9 67 20 167/59 99 Room Air 07/06/16 04:00 98.1 60 20 151/54 97 Room Air 07/06/16 00:00 98.2 76 20 155/69 98 Room Air 07/05/16 22:00 155/71 Intake and Output 07/05/16 07/06/16 17:00 05:00 Intake Total 800 ml 115 ml Output Total 1150 ml 300 ml Balance -350 ml -185 ml Intake Oral 800 ml IV Total 115 ml Output Urine Total 1150 ml 300 ml # Voids 3 # Bowel Movements 6 Laboratory Tests 07/05/16 18:15: Stool Occult Blood Negative 07/06/16 05:50: White Blood Count 8.2, Red Blood Count 3.42L, Hemoglobin 9.6L, Hematocrit 30.0L , Mean Corpuscular Volume 88, Mean Corpuscular Hemoglobin 28.1, Mean Corpuscular Hemoglobin Concent 32.0, Red Cell Distribution Width 13.6, Platelet Count 334, Mean Platelet Volume 5.3L, Neutrophils (%) (Auto) 69.1, Lymphocytes ( %) (Auto) 16.3L, Monocytes (%) (Auto) 11.5H, Eosinophils (%) (Auto) 2.6, Basophils (%) (Auto) 0.6, Sodium Level 139, Potassium Level 4.7, Chloride Level 100, Carbon Dioxide Level 26, Anion Gap 13, Blood Urea Nitrogen 31H, Creatinine 1.2, Estimat Glomerular Filtration Rate > 60, Glucose Level 172H, Calcium Level 8.6, CA 19-9 Antigen 20.11 Height (Feet): 5 Height (Inches): 7.00 Weight (Pounds): 148 General Appearance: alert EENT: TMs normal Neck: supple Cardiovascular: normal rate Respiratory/Chest: lungs clear Abdomen: soft Pelvis: no masses Extremities: non-tender Edema: no edema noted Arm (L), no edema noted Arm (R), no edema noted Leg (L), no edema noted Leg (R), no edema noted Pedal (L), no edema noted Pedal (R), no edema noted Generalized Neurologic: alert Skin: warm/dry Lymphatic: normal anterior cervical (L), normal anterior cervical (R), normal axillary (L), normal axillary (R), normal inguinal (L), normal inguinal (R), normal other, normal posterior cervical (L), normal posterior cervical (R), normal submandibular (L), normal submandibular (R), normal supraclavicular (L), normal supraclavicular (R) CHARIS COLLINS Jul 06, 2016 18:10
[2016-07-06] MEDS: Iron Sucrose 100 MG in NS 110 ML IVPB SCH (21:00)
[2016-07-06] MEDS ORDERED: Epogen (for non ESRD use) SUBQ SCH (21:00)
--- NOTE | 2016-07-06 22:38 | Procedure Note ---
DATE OF PROCEDURE: 07/06/2016 SURGEON: Shyam Farris M.D. PROCEDURE: Upper endoscopy with biopsy and colonoscopy. ANESTHESIOLOGIST: Dr. Egan. INSTRUMENT: Olympus adult flexible upper endoscope and colonoscope. INDICATION: Anemia. REASON FOR PROCEDURE: The procedure, risks, benefits, and possible consequences, including hemorrhage, aspiration, perforation and infection, and alternative treatments, were explained to the patient/legal guardian by Dr. Shyam Farris and the patient/legal guardian understood and accepted these risks. PROCEDURE: After informed consent was obtained and the patient was adequately sedated, Olympus upper endoscope was advanced from mouth into the second portion of the duodenum and retroflexion was performed into the stomach. The patient has evidence of atrophic gastritis. Multiple erosions throughout the stomach. In the duodenum, there was a thickened fold, which was biopsied. At this time, the upper endoscope was retrieved and the patient was turned over for colonoscopy. First, a rectal exam was performed, which was normal. Then, the scope was advanced from the rectum into the area seems to be cecum, but we were not sure. This was a very very challenging procedure. This was very tortuous and very redundant sigmoid colon. We spent almost over half an hour just passing the sigmoid and the prep was not good. So, we had also hard time seeing where exactly it is going. The patient had some scattered diverticulosis in the left colon. No obvious mass was seen. The patient had one polyp in the ascending colon, which was small. I removed with the cold biopsy forceps technique. Evaluation of the cecum was limited. Also throughout the colon the prep was not great, so I would say about 25% to 30% of the colonic mucosa was not thoroughly examined. Retroflexion of rectum showed evidence of internal hemorrhoids. SUMMARY OF FINDINGS: 1. Multiple antral erosions. 2. Atrophic gastritis. 3. Prominent folds in the duodenum status post biopsy. 4. Very tortuous and poor prep colonoscopy. 5. One colonic polyp removed, see above for details. 6. Scattered diverticulosis. 7. Internal hemorrhoids. RECOMMENDATIONS: Follow up biopsies and treat accordingly. We will plan CT given this significant weight loss and anemia. Shyam Ary Farris DR: Jim JOB#: [id number] CC:
--- NOTE | 2016-07-06 23:12 | Pulmonology Progress Note ---
Assessment/Plan Assessment/Plan Assessment/Plan Assessment/Plan ASSESSMENT anemia r/o GI bleeding B 12 deficiency anemia iron deficiency anemia DM HTN s/p Right foot open transmetatarsal amputation with possible abscess at the plantar midfoot. PVD PLAN OF CARE [facility] floor s/p blood transfusion, HH up anemia workup with B 12 deficiency and low iron on vit B 12 replacement as per heme, heme follows ?Venofer - per heme discretion , iron panel low monitor HH closely, transfuse as needed stool OB negative Subjective ROS Limited/Unobtainable: Yes Constitutional: Reports: anorexia, fatigue Neurologic: Reports: confusion, weakness Allergies: Coded Allergies: No Known Allergies (Unverified , 07/02/16) Objective Last 24 Hour Vital Signs Date Time Temp Pulse Resp B/P Pulse Ox O2 Delivery O2 Flow Rate FiO2 07/06/16 20:00 98.3 61 20 149/64 97 Room Air 07/06/16 16:00 75 18 152/69 97 Room Air 07/06/16 13:47 69 21 131/48 98 Room Air 07/06/16 13:40 98.0 66 24 137/49 100 Room Air 07/06/16 13:30 66 18 145/43 100 Room Air 07/06/16 13:25 57 18 99/51 100 Nasal Cannula 3.0 07/06/16 13:20 59 14 106/45 100 Nasal Cannula 3.0 07/06/16 13:18 58 17 100 07/06/16 13:17 50 17 100 07/06/16 13:15 53 10 100/51 100 Nasal Cannula 3.0 07/06/16 13:13 98.4 50 12 85/32 100 Nasal Cannula 3.0 07/06/16 11:54 97.2 73 20 164/78 100 Room Air 07/06/16 09:04 67 167/59 07/06/16 08:21 97.9 67 20 167/59 99 Room Air 07/06/16 04:00 98.1 60 20 151/54 97 Room Air 07/06/16 00:00 98.2 76 20 155/69 98 Room Air Intake and Output 07/05/16 07/06/16 19:00 07:00 Intake Total 800 ml 115 ml Output Total 300 ml Balance 800 ml -185 ml Intake Oral 800 ml IV Total 115 ml Output Urine Total 300 ml # Voids 3 # Bowel Movements 12 General Appearance: no acute distress HEENT: normocephalic, atraumatic, PERRL Respiratory/Chest: chest wall non-tender, decreased breath sounds, accessory muscle use Cardiovascular: normal peripheral pulses, normal rate, regular rhythm, no JVD Abdomen: normal bowel sounds, soft, non tender, no organomegaly, non distended Genitourinary: normal external genitalia Extremities: no cyanosis Skin: no rash, no lesions Neurologic/Psychiatric: cardiovascular tech II-XII grossly normal, responsive, disoriented Laboratory Tests 07/06/16 05:50: White Blood Count 8.2, Red Blood Count 3.42L, Hemoglobin 9.6L, Hematocrit 30.0L , Mean Corpuscular Volume 88, Mean Corpuscular Hemoglobin 28.1, Mean Corpuscular Hemoglobin Concent 32.0, Red Cell Distribution Width 13.6, Platelet Count 334, Mean Platelet Volume 5.3L, Neutrophils (%) (Auto) 69.1, Lymphocytes ( %) (Auto) 16.3L, Monocytes (%) (Auto) 11.5H, Eosinophils (%) (Auto) 2.6, Basophils (%) (Auto) 0.6, Sodium Level 139, Potassium Level 4.7, Chloride Level 100, Carbon Dioxide Level 26, Anion Gap 13, Blood Urea Nitrogen 31H, Creatinine 1.2, Estimat Glomerular Filtration Rate > 60, Glucose Level 172H, Calcium Level 8.6, CA 19-9 Antigen 20.11 Current Medications Medications (Trade) Dose Ordered Sig/Daphne Route PRN Reason Start Time Stop Time Status Last Admin Dose Admin Acetaminophen (Tylenol) 650 mg Q4H PRN ORAL fever 07/02/16 20:45 08/01/16 20:44 07/04/16 21:21 Al Hydroxide/Mg Hydroxide (Mylanta II) 30 ml Q6H PRN ORAL dyspepsia 07/02/16 20:45 08/01/16 20:44 Amlodipine Besylate (Norvasc) 5 mg DAILY ORAL 07/02/16 21:30 08/01/16 21:29 07/06/16 09:04 Collagenase (Santyl) 1 applic DAILY TOPIC 07/06/16 18:00 08/05/16 17:59 07/06/16 18:29 Cyanocobalamin (Vitamin B12) 1,000 mcg QMONTH IM 07/04/16 09:00 08/03/16 08:59 07/04/16 08:46 Dextrose (Dextrose 50%) STAT PRN IV Hypoglycemia 07/02/16 20:45 08/01/16 20:44 Epoetin Augustine 5000 units 5,000 units MON-WED-FRI SUBQ 07/06/16 21:00 08/05/16 20:59 07/06/16 22:16 Insulin Aspart (NovoLOG) BEFORE MEALS AND HS SUBQ 07/02/16 22:00 08/01/16 21:59 07/06/16 20:59 Iron Sucrose/ Sodium Chloride (Venofer/Sodium Chloride) 115 ml @ 230 mls/hr BEDTIME IVPB 07/05/16 21:00 07/09/16 21:29 07/06/16 21:00 Levofloxacin (Levaquin) 500 mg DAILY ORAL 07/06/16 17:00 07/13/16 16:59 07/06/16 17:14 Lorazepam (Ativan 2mg/ml 1ml) 0.5 mg Q4H PRN IV For Anxiety 07/02/16 20:45 07/09/16 20:44 Morphine Sulfate (Morphine Sulfate) 1 mg EVERY 4 HOURS PRN IVP For Pain 07/02/16 20:45 07/09/16 20:44 07/04/16 21:21 Ondansetron HCl (Zofran) 4 mg Q6H PRN IVP Nausea & Vomiting 07/02/16 20:45 08/01/16 20:44 Polyethylene Glycol (Miralax) 17 gm HSPRN PRN ORAL Constipation 07/02/16 20:45 08/01/16 20:44 Zolpidem Tartrate (Ambien) 5 mg HSPRN PRN ORAL Insomnia 07/02/16 20:45 08/01/16 20:44 JIGAR HARDING Jul 06, 2016 23:12
[2016-07-07] VITALS: BP 138/57
[2016-07-07 03:56] VITALS: BP 126/56
[2016-07-07 05:26] LABS: BASOPHILS % (AUTO) 0.6 % (0.0-2.0); EOSINOPHILS % (AUTO) 2.2 % (0.0-3.0); LYMPHOCYTES % (AUTO) 16.1 % (20.0-45.0); MEAN CORPUSCULAR HEMOGLOBIN 28.2 PG (27.0-31.0); MEAN CORPUSCULAR HGB CONC 32.3 G/DL (32.0-36.0); MEAN CORPUSCULAR VOLUME 87 FL (80-99); MEAN PLATELET VOLUME 5.6 FL (6.5-10.1); MONOCYTES % (AUTO) 10.2 % (1.0-10.0); NEUTROPHILS % (AUTO) 70.9 % (45.0-75.0); PLATELET COUNT 298 K/UL (150-450); RED BLOOD COUNT 3.18 M/UL (4.70-6.10); RED CELL DISTRIBUTION WIDTH 13.6 % (11.6-14.8); WHITE BLOOD COUNT 6.9 K/UL (4.8-10.8)
[2016-07-07 05:48] LABS: ANION GAP 12 (5-15); CALCIUM 8.3 mg/dL (8.6-10.2); CARBON DIOXIDE 24 mEQ/L (20-30); CHLORIDE 103 mEQ/L (98-107); CREATININE 1.2 mg/dL (0.7-1.2); GLOMERULAR FILTRATION RATE > 60 mL/min (>60); HEMOLYSIS 1; POTASSIUM 4.2 mEQ/L (3.4-4.9); SODIUM 139 mEQ/L (135-145)
[2016-07-07] MEDS: NovoLOG Insulin Flexpen SUBQ SCH ×2 (06:00→12:17)
--- NOTE | 2016-07-07 07:47 | Podiatric Progress Note ---
Assessment/Plan Patient Chandan Nielsen is a 71 year old male who was admitted on Jul 02, 2016 at 18:29 with right foot wound Problems: (1) Status post transmetatarsal amputation of right foot (2) Open wound of right foot (3) Diabetes mellitus Assessment/Plan Patient is doing well. He is afebrile and without leukocytosis. MRI is negative for abscess. It does show bone edema at the distal aspects of the metatarsals. However, this is likely due to recent transmetatarsal amputation. - Okay to discharge from podiatry standpoint - Will follow up as outpatient - Discharge with 20 days of PO levofloxacin 750 - Patient will need home health for daily dressing changes using santyl - Patient may require revisional surgery in the future if wound does not improve - Partial weight bearing on right foot with using crutches Subjective Reason for consult Right foot wound Allergies: Coded Allergies: No Known Allergies (Unverified , 07/02/16) Subjective Patient is doing well. No nausea, vomiting, fevers, or chills. Objective Exam Last 24 Hour Vital Signs Date Time Temp Pulse Resp B/P Pulse Ox O2 Delivery O2 Flow Rate FiO2 07/07/16 03:56 98.0 56 18 126/56 99 Room Air 07/07/16 00:00 98.1 58 18 138/57 98 Room Air 07/06/16 20:00 98.3 61 20 149/64 97 Room Air 07/06/16 16:00 75 18 152/69 97 Room Air 07/06/16 13:47 69 21 131/48 98 Room Air 07/06/16 13:40 98.0 66 24 137/49 100 Room Air 07/06/16 13:30 66 18 145/43 100 Room Air 07/06/16 13:25 57 18 99/51 100 Nasal Cannula 3.0 07/06/16 13:20 59 14 106/45 100 Nasal Cannula 3.0 07/06/16 13:18 58 17 100 07/06/16 13:17 50 17 100 07/06/16 13:15 53 10 100/51 100 Nasal Cannula 3.0 07/06/16 13:13 98.4 50 12 85/32 100 Nasal Cannula 3.0 07/06/16 11:54 97.2 73 20 164/78 100 Room Air 07/06/16 09:04 67 167/59 07/06/16 08:21 97.9 67 20 167/59 99 Room Air Laboratory Tests Test 07/07/16 04:20 White Blood Count 6.9 K/UL (4.8-10.8) Red Blood Count 3.18 M/UL (4.70-6.10) L Hemoglobin 9.0 G/DL (14.2-18.0) L Hematocrit 27.8 % (42.0-52.0) L Mean Corpuscular Volume 87 FL (80-99) Mean Corpuscular Hemoglobin 28.2 PG (27.0-31.0) Mean Corpuscular Hemoglobin Concent 32.3 G/DL (32.0-36.0) Red Cell Distribution Width 13.6 % (11.6-14.8) Platelet Count 298 K/UL (150-450) Mean Platelet Volume 5.6 FL (6.5-10.1) L Neutrophils (%) (Auto) 70.9 % (45.0-75.0) Lymphocytes (%) (Auto) 16.1 % (20.0-45.0) L Monocytes (%) (Auto) 10.2 % (1.0-10.0) H Eosinophils (%) (Auto) 2.2 % (0.0-3.0) Basophils (%) (Auto) 0.6 % (0.0-2.0) Sodium Level 139 mEQ/L (135-145) Potassium Level 4.2 mEQ/L (3.4-4.9) Chloride Level 103 mEQ/L (98-107) Carbon Dioxide Level 24 mEQ/L (20-30) Anion Gap 12 (5-15) Blood Urea Nitrogen 24 mg/dL (7-23) H Creatinine 1.2 mg/dL (0.7-1.2) Estimat Glomerular Filtration Rate > 60 mL/min (>60) Glucose Level 151 mg/dL (74-106) H Calcium Level 8.3 mg/dL (8.6-10.2) L Microbiology Date/Time Source Procedure Growth Status 07/03/16 19:00 Wound Gram Stain - Final Resulted 07/03/16 19:00 Aerobic Culture - Preliminary Klebsiella Pneumoniae Enterobacter Cloacae Complex Staphylococcus Aureus Resulted 07/03/16 19:00 Wound Anaerobic Culture Pending Resulted Exam Narrative Dressings are clean, dry, and in tact. No strikethrough. No purulence or malodor noted. Fibrotic tissue present at the wound base Dermatological Wound Assessment : Exudate Amount: Moderate Curry Ramos DPM Jul 07, 2016 07:47
[2016-07-07 08:00] VITALS: BP 142/60
[2016-07-07 09:42] VITALS: BP 142/60
[2016-07-07] MEDS: Levofloxacin 500mg tab ORAL SCH (09:42)
--- NOTE | 2016-07-07 11:16 | Diagnostic Imaging Report ---
Indication: Abdominal pain, chest pain Technique: Patient ingested oral contrast. IV administration nonionic contrast.. Spiral acquisitions obtained through the chest, abdomen, and pelvis. Multiplanar reconstructions were generated. Total dose length product 1232 mGycm. CTDIvol(s) 8, 129, 11, 11 mGy. Radiation dose was minimized using automated exposure control Comparison: None Findings: Chest: There is some focal atelectasis in the left posterior costophrenic sulcus. Lungs and pleural spaces are otherwise clear. No infiltrates, effusions, masses, or nodules. The heart size is normal. There is no evidence of pericardial effusion. No mediastinal or hilar mass or adenopathy. There is a calcification within a paratracheal lymph node. The right thyroid lobe contains calcifications. The left thyroid lobe contains an 11 mm nodule in the lower pole. No axillary or chest wall mass or adenopathy. Esophagus is unremarkable. No significant osseous abnormality other than degenerative proliferative changes of the thoracic spine Abdomen pelvis: The liver, gallbladder, bile ducts pancreas, spleen, adrenals, kidneys are unremarkable. There are borderline enlarged bilateral iliac chain and retroperitoneal lymph nodes. There is a right iliac chain node which measures 2 cm long axis dimension and a pericaval none which measures 2.6 cm long axis dimension. The lymph nodes do demonstrate preservation of normal smith architecture No pelvic mass. The bladder is mildly distended. There is equivocal mild bladder wall thickening. The prostate is prominent. There is equivocal mild wall thickening of the distal sigmoid and rectum. No evidence of diverticulosis or diverticulitis. The appendix is normal. No small bowel distention. No free or loculated intraperitoneal air or fluid is demonstrated. Impression: Equivocal mild wall thickening of the distal sigmoid]. Possibly artifact of under distention, if real could indicate colitis/proctitis Borderline bilateral iliac chain and retroperitoneal lymphadenopathy. Nonspecific as regards etiology, could be reactive or neoplastic. Preservation of the normal smith architecture of several of these suggests the former Focal atelectasis in the left posterior costophrenic sulcus. No acute thoracic pathology otherwise 11 mm left lower pole thyroid nodule. Consider sonography for further evaluation Evidence of old granulomatous disease within the mediastinum Degenerative proliferative spondylosis Equivocal mild bladder wall thickening, indicate cystitis or chronic bladder outlet obstruction Borderline prostatomegaly The CT scanner at [facility] is accredited by the [employer] and the scans are performed using protocols designed to limit radiation exposure to as low as reasonably achievable to attain images of sufficient resolution adequate for diagnostic evaluation.
[2016-07-07 12:00] VITALS: BP 173/73
--- NOTE | 2016-07-07 12:53 | GI Progress Note ---
Assessment/Plan Problems: (1) Colon polyps ICD Codes: K63.5 - Polyp of colon SNOMED: 84747537 (2) Antral erosion ICD Codes: K25.9 - Gastric ulcer, unspecified as acute or chronic, without hemorrhage or perforation SNOMED: 05767489, 981209976 (3) Gastritis ICD Codes: K29.70 - Gastritis, unspecified, without bleeding SNOMED: 1292077 (4) Thyroid nodule ICD Codes: E04.1 - Nontoxic single thyroid nodule SNOMED: 293181804 (5) Anemia ICD Codes: D64.9 - Anemia, unspecified SNOMED: 110637922 Status: stable Status Narrative Discussed with Dr. Farris. Assessment/Plan DATE OF PROCEDURE: 07/06/2016 PROCEDURE: Upper endoscopy with biopsy and colonoscopy. SUMMARY OF FINDINGS: 1. Multiple antral erosions. 2. Atrophic gastritis. 3. Prominent folds in the duodenum status post biopsy. 4. Very tortuous and poor prep colonoscopy. 5. One colonic polyp removed. 6. Scattered diverticulosis. 7. Internal hemorrhoids. PanCT reviewed >> 11 mm left lower pole thyroid nodule (See full report below) OB stool negative x 2 stable H&H, transfuse prn unintentional weight loss recommend Endocrine consult for thyroid nodule ADA diet, tolerating ppi fu biopsies fu labs The patient was seen and examined at bedside and all new and available data was reviewed in the patients chart. I agree with the above findings, impression and plan. (Patient seen earlier today. Signature stamp does not reflect patient encounter time.). -Shyam Farris MD Subjective Gastrointestinal/Abdominal: Reports: no symptoms Objective Last 24 Hour Vital Signs Date Time Temp Pulse Resp B/P Pulse Ox O2 Delivery O2 Flow Rate FiO2 07/07/16 12:00 97.7 70 18 173/73 99 Room Air 07/07/16 09:42 69 142/60 07/07/16 08:00 98.1 69 20 142/60 98 Room Air 07/07/16 03:56 98.0 56 18 126/56 99 Room Air 07/07/16 00:00 98.1 58 18 138/57 98 Room Air 07/06/16 20:00 98.3 61 20 149/64 97 Room Air 07/06/16 16:00 75 18 152/69 97 Room Air 07/06/16 13:47 69 21 131/48 98 Room Air 07/06/16 13:40 98.0 66 24 137/49 100 Room Air 07/06/16 13:30 66 18 145/43 100 Room Air 07/06/16 13:25 57 18 99/51 100 Nasal Cannula 3.0 07/06/16 13:20 59 14 106/45 100 Nasal Cannula 3.0 07/06/16 13:18 58 17 100 07/06/16 13:17 50 17 100 07/06/16 13:15 53 10 100/51 100 Nasal Cannula 3.0 07/06/16 13:13 98.4 50 12 85/32 100 Nasal Cannula 3.0 Intake and Output 07/06/16 07/07/16 19:00 07:00 Intake Total 250 ml 595 ml Output Total 0 ml 600 ml Balance 250 ml -5 ml Intake Oral 480 ml IV Total 250 ml 115 ml Output Urine Total 600 ml Estimated Blood Loss 0 ml # Voids 2 Laboratory Tests Test 07/07/16 04:20 White Blood Count 6.9 K/UL (4.8-10.8) Red Blood Count 3.18 M/UL (4.70-6.10) L Hemoglobin 9.0 G/DL (14.2-18.0) L Hematocrit 27.8 % (42.0-52.0) L Mean Corpuscular Volume 87 FL (80-99) Mean Corpuscular Hemoglobin 28.2 PG (27.0-31.0) Mean Corpuscular Hemoglobin Concent 32.3 G/DL (32.0-36.0) Red Cell Distribution Width 13.6 % (11.6-14.8) Platelet Count 298 K/UL (150-450) Mean Platelet Volume 5.6 FL (6.5-10.1) L Neutrophils (%) (Auto) 70.9 % (45.0-75.0) Lymphocytes (%) (Auto) 16.1 % (20.0-45.0) L Monocytes (%) (Auto) 10.2 % (1.0-10.0) H Eosinophils (%) (Auto) 2.2 % (0.0-3.0) Basophils (%) (Auto) 0.6 % (0.0-2.0) Sodium Level 139 mEQ/L (135-145) Potassium Level 4.2 mEQ/L (3.4-4.9) Chloride Level 103 mEQ/L (98-107) Carbon Dioxide Level 24 mEQ/L (20-30) Anion Gap 12 (5-15) Blood Urea Nitrogen 24 mg/dL (7-23) H Creatinine 1.2 mg/dL (0.7-1.2) Estimat Glomerular Filtration Rate > 60 mL/min (>60) Glucose Level 151 mg/dL (74-106) H Calcium Level 8.3 mg/dL (8.6-10.2) L Height (Feet): 5 Height (Inches): 7.00 Weight (Pounds): 148 General Appearance: no apparent distress, alert Cardiovascular: normal rate Respiratory/Chest: normal breath sounds, no respiratory distress Abdominal Exam: normal bowel sounds, non tender, soft Extremities: normal range of motion Objective DATE OF PROCEDURE: 07/06/2016 SURGEON: Shyam Farris M.D. PROCEDURE: Upper endoscopy with biopsy and colonoscopy. SUMMARY OF FINDINGS: 1. Multiple antral erosions. 2. Atrophic gastritis. 3. Prominent folds in the duodenum status post biopsy. 4. Very tortuous and poor prep colonoscopy. 5. One colonic polyp removed, see above for details. 6. Scattered diverticulosis. 7. Internal hemorrhoids. Service Date: 07/06/16 Procedure: CT Chest Abdomen Pelvis W/Cont Indication: Abdominal pain, chest pain Impression: Equivocal mild wall thickening of the distal sigmoid. Possibly artifact of under distention, if real could indicate colitis/proctitis Borderline bilateral iliac chain and retroperitoneal lymphadenopathy. Nonspecific as regards etiology, could be reactive or neoplastic. Preservation of the normal smith architecture of several of these suggests the former Focal atelectasis in the left posterior costophrenic sulcus. No acute thoracic pathology otherwise 11 mm left lower pole thyroid nodule. Consider sonography for further evaluation Evidence of old granulomatous disease within the mediastinum Degenerative proliferative spondylosis Equivocal mild bladder wall thickening, indicate cystitis or chronic bladder outlet obstruction Borderline prostatomegaly Clari Lopez N.P. Jul 07, 2016 12:53 SHYAM FARRIS Jul 08, 2016 10:46
--- NOTE | 2016-07-07 14:08 | Diagnostic Imaging Report ---
Indication: Pain Comparison: None Findings: 3 views of the right foot were obtained. Transmetatarsal amputation noted. There is no periostitis or erosion. No soft tissue gas seen. Vascular calcifications are noted. Impression: Transmetatarsal amputation noted.
--- NOTE | 2016-07-07 15:52 | Internal Med Progress Note ---
Subjective Date of Service: Jul 07, 2016 Physician Name Gerson Flor Attending Physician Saran Feliciano MD Current Medications Medications (Trade) Dose Ordered Sig/Daphne Route PRN Reason Start Time Stop Time Status Last Admin Dose Admin Acetaminophen (Tylenol) 650 mg Q4H PRN ORAL fever 07/02/16 20:45 08/01/16 20:44 07/04/16 21:21 Al Hydroxide/Mg Hydroxide (Mylanta II) 30 ml Q6H PRN ORAL dyspepsia 07/02/16 20:45 08/01/16 20:44 Amlodipine Besylate (Norvasc) 5 mg DAILY ORAL 07/02/16 21:30 08/01/16 21:29 07/07/16 09:42 Collagenase (Santyl) 1 applic DAILY TOPIC 07/06/16 18:00 08/05/16 17:59 07/07/16 09:42 Cyanocobalamin (Vitamin B12) 1,000 mcg QMONTH IM 07/04/16 09:00 08/03/16 08:59 07/04/16 08:46 Dextrose (Dextrose 50%) STAT PRN IV Hypoglycemia 07/02/16 20:45 08/01/16 20:44 Epoetin Augustine 5000 units 5,000 units MON-WED-FRI SUBQ 07/06/16 21:00 08/05/16 20:59 07/06/16 22:16 Insulin Aspart (NovoLOG) BEFORE MEALS AND HS SUBQ 07/02/16 22:00 08/01/16 21:59 07/07/16 12:17 Iron Sucrose/ Sodium Chloride (Venofer/Sodium Chloride) 115 ml @ 230 mls/hr BEDTIME IVPB 07/05/16 21:00 07/09/16 21:29 07/06/16 21:00 Levofloxacin (Levaquin) 500 mg DAILY ORAL 07/06/16 17:00 07/13/16 16:59 07/07/16 09:42 Lorazepam (Ativan 2mg/ml 1ml) 0.5 mg Q4H PRN IV For Anxiety 07/02/16 20:45 07/09/16 20:44 Morphine Sulfate (Morphine Sulfate) 1 mg EVERY 4 HOURS PRN IVP For Pain 07/02/16 20:45 07/09/16 20:44 07/04/16 21:21 Ondansetron HCl (Zofran) 4 mg Q6H PRN IVP Nausea & Vomiting 07/02/16 20:45 08/01/16 20:44 Polyethylene Glycol (Miralax) 17 gm HSPRN PRN ORAL Constipation 07/02/16 20:45 08/01/16 20:44 Zolpidem Tartrate (Ambien) 5 mg HSPRN PRN ORAL Insomnia 07/02/16 20:45 08/01/16 20:44 Allergies: Coded Allergies: No Known Allergies (Unverified , 07/02/16) ROS Limited/Unobtainable: No Constitutional: Reports: no symptoms HEENT: Reports: no symptoms Cardiovascular: Reports: no symptoms Respiratory: Reports: no symptoms Gastrointestinal/Abdominal: Reports: no symptoms Genitourinary: Reports: no symptoms Subjective 71 YO M admitted with severe anemia. S/P transfusion. Cover for Int Ochoa-Dr Feliciano Objective Last Vital Signs Date Time Temp Pulse Resp B/P Pulse Ox O2 Delivery O2 Flow Rate FiO2 07/07/16 12:00 97.7 70 18 173/73 99 Room Air 07/06/16 13:25 3.0 Laboratory Tests Test 07/07/16 04:20 07/07/16 05:00 White Blood Count 6.9 K/UL (4.8-10.8) Red Blood Count 3.18 M/UL (4.70-6.10) L Hemoglobin 9.0 G/DL (14.2-18.0) L Hematocrit 27.8 % (42.0-52.0) L Mean Corpuscular Volume 87 FL (80-99) Mean Corpuscular Hemoglobin 28.2 PG (27.0-31.0) Mean Corpuscular Hemoglobin Concent 32.3 G/DL (32.0-36.0) Red Cell Distribution Width 13.6 % (11.6-14.8) Platelet Count 298 K/UL (150-450) Mean Platelet Volume 5.6 FL (6.5-10.1) L Neutrophils (%) (Auto) 70.9 % (45.0-75.0) Lymphocytes (%) (Auto) 16.1 % (20.0-45.0) L Monocytes (%) (Auto) 10.2 % (1.0-10.0) H Eosinophils (%) (Auto) 2.2 % (0.0-3.0) Basophils (%) (Auto) 0.6 % (0.0-2.0) Sodium Level 139 mEQ/L (135-145) Potassium Level 4.2 mEQ/L (3.4-4.9) Chloride Level 103 mEQ/L (98-107) Carbon Dioxide Level 24 mEQ/L (20-30) Anion Gap 12 (5-15) Blood Urea Nitrogen 24 mg/dL (7-23) H Creatinine 1.2 mg/dL (0.7-1.2) Estimat Glomerular Filtration Rate > 60 mL/min (>60) Glucose Level 151 mg/dL (74-106) H Calcium Level 8.3 mg/dL (8.6-10.2) L Total Triiodothyronine Pending Intake and Output 07/06/16 07/07/16 19:00 07:00 Intake Total 250 ml 595 ml Output Total 0 ml 600 ml Balance 250 ml -5 ml Intake Oral 480 ml IV Total 250 ml 115 ml Output Urine Total 600 ml Estimated Blood Loss 0 ml # Voids 2 Objective General Appearance: WD/WN, no apparent distress, alert EENT: PERRL/EOMI, normal ENT inspection Neck: non-tender, normal alignment, supple Cardiovascular: normal peripheral pulses, normal rate, regular rhythm, no gallop/murmur, no JVD Respiratory/Chest: chest wall non-tender, lungs clear, normal breath sounds, no respiratory distress, no accessory muscle use Abdomen: normal bowel sounds, non tender, soft, no organomegaly, no mass Extremities: normal range of motion Neurologic: poll clerk II-XII grossly normal, no motor/sensory deficits Skin: normal pigmentation, warm/dry Assessment/Plan Problem List: (1) Diabetes mellitus Assessment & Plan: con novolog sliding scale. (2) HTN (hypertension) Assessment & Plan: Cont norvasc (3) Diabetic retinopathy (4) Anemia Assessment & Plan: Severe. Iron deficiency and Vit B12 def. See hematology note. S/P Transfusion 2 unit PRBC.. S/P endoscopy and colonoscopy on per -Dr Farris (5) Diabetic neuropathy associated with type 2 diabetes mellitus (6) Diabetic foot ulcer Assessment & Plan: See podiatry note. Await MRI right foot. (7) Open wound of right foot Status: not improved GERSON FLOR Jul 07, 2016 15:52
--- NOTE | 2016-07-09 06:29 | Discharge Summary ---
Discharge Summary Hospital Course Date of Admission Jul 02, 2016 at 18:29 Date of Discharge Jul 07, 2016 at 16:30 Admitting Diagnosis anemia HPI Chandan Nielsen is a 71 year old male who was admitted on Jul 02, 2016 at 18:29 for Anemia Hospital Course [id number] Discharge Discharge Disposition Patient was discharged to Home with Home Health(06) Discharge Diagnoses: Merna Collins NP Jul 09, 2016 06:29
--- NOTE | 2016-07-09 09:28 | Discharge Summary 2 SIG ---
DATE OF ADMISSION: 07/02/2016 DATE OF DISCHARGE: 07/07/2016 CONSULTANTS: 1. Curry Ramos DPM 2. Demetrio Collins M.D. 3. Shyam Farris M.D. 4. Fran Knott M.D. BRIEF HOSPITAL COURSE: The patient is a 71-year-old male, who had a blood draw as outpatient and was found to have hemoglobin of 7.8. According to patient's daughter, he has right foot ulcer and has not been able to eat or drink much secondary to immobility and has lost approximately 30 pounds in the last month. He was admitted for severe anemia and malnutrition. On evaluation, was found to have hemoglobin of 7.8, hematocrit 24, creatinine 1.2, glucose 158, sodium 133, and potassium 4.5. He was given two units packed RBC transfusion. Anemia workup was initiated and was seen by Hematology. Anemia was secondary to kidney disease with vitamin B12 deficiency and was given B12 injections and Procrit subcutaneous. Dr. Farris was consulted. The patient underwent EGD with colonoscopy on 07/06/2016 with findings of multiple antral erosions, atrophic gastritis, colonic polyps, diverticulosis and internal hemorrhoids. Podiatry consult was done. Wound care was given. Foot x-ray showed metatarsal amputation on the right foot. Foot MRI showed acute osteomyelitis in the metatarsal stump and negative for abscess it did show bone edema at the distal aspect of metatarsals, however this is likely due to recent transmetatarsal amputation. Wound was debrided at the plantar foot. The patient has two areas of skin necrosis with no purulence or malodor noted from these areas. Daily dressings were applied with Santyl. He was eventually cleared for discharged to follow up with Podiatry service as outpatient and to continue 20 days of p.o. levofloxacin 750 mg. Discharge home with home health for daily wound dressings using Santyl. The patient may require revision of surgery in the future if wound does not improve. He was advised partial weightbearing on the right foot using crutches. DISCHARGE DISPOSITION: The patient was discharged home with home health. FINAL DIAGNOSES: 1. Acute anemia. 2. Acute osteomyelitis of the right foot. 3. Open wound on the right foot present on admission. 4. Diabetic neuropathy associated with type 2 diabetes mellitus. 5. Acute anemia, status post blood transfusion. 6. Anemia secondary to kidney disease. 7. Chronic kidney disease stage 2. 8. Anemia secondary to vitamin B12 deficiency. 9. Diabetic retinopathy. 10. Hypertension. 11. Gastritis. 12. Colon polyps. 13. Antral erosions and gastric erosions. 14. Status post recent right foot transmetatarsal amputation. Saran Feliciano M.D. I have been assigned to dictate discharge summary on this account and I was not involved in the patient's management. Merna Collins N.P. DR: Cosme JOB#: [id number] CC: TOMÁS
--- NOTE | 2016-07-22 09:43 | Diagnostic Imaging Report ---
APPROVED REPORT CPT Code: 17662 Symptoms Non-healing Ulcer : Right BILATERAL: Common femoral artery waveform analysis is within normal limits at rest. Color flow duplex sonography reveals patency of the superficial femoral, popliteal, and tibial arteries. There is no evidence of stenosis or occlusion within these segments. Doppler tibial artery waveform analysis is compatible with minimal ischemia bilaterally.
== END 2016-07-07 16:30 | disposition home health service (06) | DRG 663 ==
LOC: EMR 17:07 → 4W 18:29 → EDBEDREQ 19:06
PROC: 30233N1 Transfusion of Nonautologous Red Blood Cells into Peripheral Vein, Percutaneous Approach (ICD-10-PCS; 2016-07-02)
PROC: 0DJ08ZZ Inspection of Upper Intestinal Tract, Via Natural or Artificial Opening Endoscopic (ICD-10-PCS; principal; 2016-07-06 12:24)
PROC: 0DBK8ZX Excision of Ascending Colon, Via Natural or Artificial Opening Endoscopic, Diagnostic (ICD-10-PCS; 2016-07-06 12:24)
DX: D50.9 Iron deficiency anemia, unspecified (principal); E46 Unspecified protein-calorie malnutrition; M86.171 Other acute osteomyelitis, right ankle and foot; E11.22 Type 2 diabetes mellitus with diabetic chronic kidney disease; E11.51 Type 2 diabetes mellitus with diabetic peripheral angiopathy without gangrene; E11.319 Type 2 diabetes mellitus with unspecified diabetic retinopathy without macular edema; E11.621 Type 2 diabetes mellitus with foot ulcer; Z68.23 Body mass index [BMI] 23.0-23.9, adult; E83.51 Hypocalcemia; I12.9 Hypertensive chronic kidney disease with stage 1 through stage 4 chronic kidney disease, or unspecified chronic kidney disease; N18.2 Chronic kidney disease, stage 2 (mild); D63.1 Anemia in chronic kidney disease; K29.40 Chronic atrophic gastritis without bleeding; K57.90 Diverticulosis of intestine, part unspecified, without perforation or abscess without bleeding; K64.8 Other hemorrhoids; Z89.431 Acquired absence of right foot; D12.2 Benign neoplasm of ascending colon; E04.1 Nontoxic single thyroid nodule; E11.69 Type 2 diabetes mellitus with other specified complication; Z79.4 Long term (current) use of insulin; Z87.891 Personal history of nicotine dependence
CPT/HCPCS: 36415; 71260; 74177; 80048; 80053; 82270; 82378; 82607; 82728; 82746; 82962; 83036; 83090; 83540; 83550; 83615; 83921; 84443; 84480; 85007; 85025; 85044; 85060; 85610; 85651; 85730; 86140; 86301; 86850; 86900; 86901; 86920; 87070; 87075; 87181; 87205; 93925; 93970; 94003; 94150; J1815

== ENCOUNTER → 2016-09-08 | Day surgery (SDC) | payer MEDICARE, OTHER ==
--- NOTE | 2016-09-07 16:22 | Pre-Procedure Note/Attestation ---
Pre-Procedure Note/Attestation Complete Prior to Procedure Planned Procedure: right Procedure Narrative: 1. CATARACT EXTRACTION WITH PHACO AND PC IOL IMPLANTATION, RIGHT EYE. 2.MALYUGIN RING INSERTION, RIGHT EYE FOR FLOPPY IRIS SYNDROME. 3.COMPLEX CATARACT , RIGHT EYE Indications for Procedure Pre-Operative Diagnosis: 1. CATARACT ,RIGHT EYE. 2. FLOPPY IRIS SYNDROME,RIGHT EYE 3. COMPLEX CATARACT , RIGHT EYE. Attestation I attest that I discussed the nature of the procedure; its benefits; risks and complications; and alternatives (and the risks and benefits of such alternatives ), prior to the procedure, with the patient (or the patient's legal in store representative). I attest that, if there was a reasonable possibility of needing a blood transfusion, the patient (or the patient's legal in store representative) was given the [facility] standardized written summary, pursuant to the [place] Blood Safety Act ([place] Health and Safety Code # 1645, as amended). I attest that I re-evaluated the patient just prior to the surgery and that there has been no change in the patient's H&P, except as documented below: LULA KNUTSON Sep 07, 2016 16:22
[~2016-09-08] VITALS: Ht 175.3 cm; Wt 70.3 kg
[2016-09-08] VITALS (9 sets, daily range): BP systolic 139–178; BP diastolic 60–95
[~2016-09-08] MED LIST: AMLODIPINE BESYL5 MG ORAL; ASPIR 8181 MG ORAL; BSS 15ml BTL ONE; BSS 500ml btl ONE; Dexamethasone 4mg/ml vial ONE; DiphenhydrAMINE 50mg/ml Inj IVP PRN; DiphenhydrAMINE 50mg/ml Inj ONE; EPINEPHrine 1mg/1ml Amp ONE; HUMULIN N100 UNIT/1 SUBQ; LR 1000ml 1,000 ML IVLG SCH; LR 1000ml ONE; Labetalol 5mg/ml 20ml vial IV ONE; Labetalol 5mg/ml 20ml vial IV PRN; Lidocaine 1% MPF 10mg/ml 5ml ONE; NS Irrig 1000ml ONE; Povidone-Iodine 5% opth solution ONE; Sodium Hyaluronate 10 mg/ml 0.85ml ONE; Sterile Water Irrig 1000ml IRRIG ONE; acetaZOLAMIDE 125mg tab ORAL ONE; fentaNYL 100 mcg/2 mL IV ONE
--- NOTE | 2016-09-08 08:11 | Anethesia Preoperative Eval ---
Anesthesia Pre-op PMH/ROS General Date of Evaluation: Sep 08, 2016 Anesthesiologist: Jignesh ASA Score: ASA 3 Mallampati Score Class I : Soft palate, uvula, fauces, pillars visible Class II: Soft palate, uvula, fauces visible Class III: Soft palate, base of uvula visible Class IV: Only hard plate visible Mallampati Classification: Class II Surgeon: Mauri Diagnosis: Right cataract Surgical Procedure: Right cataract extraction with IOL Anesthesia History: none Family History: no anesthesia problems Allergies: Coded Allergies: No Known Allergies (Unverified , 07/02/16) Medications: see eMAR Past Medical History Cardiovascular: Reports: HTN, Denies: CAD, VT, arrhythmia, other, valve dz Pulmonary: Denies: COPD, CHUN, asthma, other Gastrointestinal/Genitourinary: Denies: CRI, ESRD, GERD, other Neurologic/Psychiatric: Reports: depression/anxiety, Denies: CVA, TIA, dementia, other Endocrine: Reports: DM, Denies: hypothyroidism, other, steroids HEENT: Reports: cataract (R), Denies: [place] (L), S[place]ANE (R), cataract (L), glaucoma, other Hematology/Immune: Reports: anemia - chronic, Denies: DVT, bleeding disorder, other Musculoskeletal/Integumentary: Denies: DDD, DJD, OA, RA, edema, other PSxH Narrative: right foot amputation Anesthesia Pre-op Phys. Exam Physician Exam see chart Constitutional: NAD Cardiovascular: RRR Respiratory: CTA Airway Exam Mallampati Score: Class II MO: full ROM: full Teeth: intact Anesthesia Pre-op A/P Labs see chart Studies Pre-op Studies: EKG - sr Risk Assessment & Plan Assessment: ASA III Plan: MAC Status Change Before Surgery: No Pre-Antibiotics Drug: N/A JOSS CARROLL M.D. Sep 08, 2016 08:11
[2016-09-08] MEDS: Phenylephrine 10% Opth Soln 5ml RIGHT EYE SCH ×3 (08:46→09:00)
[2016-09-08] MEDS: Tropicamide 1% Opth Soln RIGHT EYE SCH ×3 (08:47→09:00)
[2016-09-08] MEDS: Diclofenac Sod 0.1% Op Soln RIGHT EYE SCH ×3 (08:47→09:01)
[2016-09-08] MEDS: Gatifloxacin Opth Solution 0.5% RIGHT EYE SCH ×3 (08:49→09:04)
[2016-09-08] MEDS: Akten 3.5% 1ml Btl RIGHT EYE SCH ×3 (08:49→09:05)
--- NOTE | 2016-09-08 10:21 | Immediate Post-Op Evaluation ---
Immediate Post-Op Evalulation Immediate Post-Op Evalulation Procedure: Right cataract extraction with IOL Date of Evaluation: Sep 08, 2016 Time of Evaluation: 10:22 IV Fluids: 200 Blood Products: 0 Estimated Blood Loss: 0 Urinary Output: 0 Blood Pressure Systolic: 165 Blood Pressure Diastolic: 71 Pulse Rate: 66 Respiratory Rate: 15 O2 Sat by Pulse Oximetry: 100 Temperature (Fahrenheit): 97.6 Pain Score (1-10): 0 Nausea: No Vomiting: No Complications 0 Patient Status: awake, reacts, patent, none Hydration Status: adequate Drug: N/A JOSS CARROLL M.D. Sep 08, 2016 10:21
--- NOTE | 2016-09-08 10:23 | Brief Operative Note ---
Immediate Post Operative Note Operative Note Chief Complaint: Blurry vision, right eye, difficulty reading and watching TV Pre-op Diagnosis: 1. CATARACT ,RIGHT EYE. 2. FLOPPY IRIS SYNDROME,RIGHT EYE 3. COMPLEX CATARACT , RIGHT EYE. Procedure: 1- Cataract extraction with phaco and PC IOL implantation, right eye 2- Malyugin ring insertion for floppy iris syndrome, right eye Post-op Diagnosis: same as pre-op Surgeon: Lula Dotson MD Lathe Set Up Operator: None Additional Surgeons: None Anesthesiologist: Dr. Egan Anesthesia: MAC Specimen: none Complications: none Condition: stable Estimated Blood Loss: none Drains: none Implant(s) used?: Yes - Monofocal PC IOl implanted in the right eye without complication LULA DOTSON Sep 08, 2016 10:23
--- NOTE | 2016-09-08 14:01 | 48 Hour Post Anesthesia Eval ---
Post Anesthesia Evaluation Procedure: Right cataract extraction with IOL Date of Evaluation: Sep 08, 2016 Time of Evaluation: 12:00 Blood Pressure Systolic: 145 0: 60 Pulse Rate: 54 Respiratory Rate: 18 Temperature (Fahrenheit): 97.3 O2 Sat by Pulse Oximetry: 100 Airway: patent Nausea: No Vomiting: No Pain Intensity: 0 Hydration Status: adequate Cardiopulmonary Status: at baseline Mental Status/LOC: patient returned to baseline Post-Anesthesia Complications: 0 Follow-up care needed: ready to discharge JOSS CARROLL M.D. Sep 08, 2016 14:01
--- NOTE | 2016-09-09 02:48 | Operative Note - Dictated ---
DATE OF OPERATION: 09/08/2016 NOTE: "POOR AUDIO QUALITY" FACILITY: [facility] SURGEON: Karel Dotson M.D. DEALER ANALYST: None. ANESTHESIOLOGIST: Dr. Egan. ANESTHESIA: Monitored anesthesia care (MAC). PREOPERATIVE DIAGNOSES: 1. Cataract of the right eye. 2. 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 4. Complex cataract. POSTOPERATIVE DIAGNOSES: 1. Cataract of the right eye. 2. 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 4. Complex cataract. SURGERY PERFORMED: 1. Cataract extraction with phacoemulsification and posterior chamber intraocular lens implantation in the right eye. 2. Insertion of Malyugin ring for treatment of floppy iris syndrome. 3. Complex cataract surgery. INDICATION FOR SURGERY: The patient is a 71-year-old gentleman with a history of diabetes mellitus, hypertension, diabetic retinopathy, and he cannot see anything with the right eye. To improve his vision in the right eye , the cataract has to be removed and posterior chamber intraocular lens has to be implanted. INFORMED CONSENT: The nature of the surgery, risks, benefits, alternatives, and potential complications were all explained in detail to the patient. The potential complications including, but not limited to bleeding, infection, posterior capsular rupture, lens subluxation, flat anterior chamber, iris prolapse, uveitis, corneal edema, macular edema, endophthalmitis, retinal detachment, loss of vision, and even loss of the eye were all explained in detail to the patient family and accepted all the complications. The alternatives including accommodating lens, multifocal lens, toric lens, and conventional cataract surgery with limbal relaxing incision for treatment of astigmatism were all explained in detail to the patient, who voiced understanding. The patient elected to have conventional cataract surgery in the right eye. Then, he signed the consent form, which is in the chart. DESCRIPTION OF SURGERY AND FINDINGS: Following that, the patient was taken to the operating room in stable condition. Lidocaine gel Akten 3.5% was applied to the conjunctiva of the right eye. Following that, IV sedation was given by the anesthesiologist, Dr. Egan. After adequate anesthesia and sedation had been achieved, the right eye was prepped and draped in the usual fashion for intraocular surgery. Following that, a speculum was placed in the right eye. Following that, using the Super Sharp knife, a clear corneal side port was created. Following that, 1% lidocaine without preservative (MPF) was injected into the anterior chamber. The viscoelastic agent Healon was injected into the anterior chamber. Following that, a clear corneal temporal keratotomy was performed with a 2.8 mm keratome. Following that, viscoelastic agent was injected into the anterior chamber again. Following that, Malyugin ring was injected into the anterior chamber and coils of the Malyugin ring was engaged with the sphincter of the pupil and a antonio-shaped space was created for safe phacoemulsification. Following that, Vision Blue was injected under the viscoelastic agent to stain the anterior capsule. Following that, an anterior capsulotomy was performed in the fashion of capsulorrhexis beautifully. Following that, the viscoelastic agent was removed from the anterior chamber. Following that, with balanced salt solution, hydrodissection and hydrodelineation were performed and the nucleus was freed. Following that, fresh, clear viscoelastic agent was injected into the anterior chamber to protect the endothelium of the cornea. Following that, using the phacoemulsification machine in the fashion of horizontal chop, I tried to remove the nucleus, but the nucleus was really hard like a rock and it was really hard to get to the nucleus. , I tried to remove the core of the nucleus and make the nucleus very thin. At the end, I was able to remove whole nucleus. was removed from the capsular bag using irrigation/aspiration unit. The capsular bag was polished. Fortunately, the posterior capsule was intact. The capsular bag was filled with viscoelastic agent Healon. Following that, a +23 diopter ZCB00 foldable PCIOL with serial number #[id number] was injected into the capsular bag. Using a Sinskey hook, the lens was manipulated and put in the proper position. viscoelastic agent then was removed from the posterior anterior part of the lens. The anterior chamber was filled with balanced salt solution. The wound was hydrated with balanced salt solution. The wound was checked for leakage and there was no leakage. The patient tolerated the surgery without complication. At the end of the surgery, the eye was patched with a clear sterile fenestrated shield. Following that, the patient was transferred to the recovery room. In the recovery room, 125 mg Diamox was given by mouth stat. Postoperative orders and directions were given to the patient. The patient will be discharged home upon stabilization. The patient will be followed in my office tomorrow morning at 9 a.m. Karel Dotson M.D. DR: JESSICA JOB#: [id number] CC:
--- NOTE | 2016-09-09 03:08 | Discharge Summary ---
DATE OF ADMISSION: 09/08/2016 DATE OF DISCHARGE: 09/08/2016 REASON FOR HOSPITALIZATION: 1. Cataract of the right eye. 2. Complex cataract. SURGERY PERFORMED: 1. Cataract extraction with phacoemulsification and posterior chamber intraocular lens implantation in the right eye. 2. Malyugin ring insertion for treatment of floppy iris syndrome. CONDITION IN THE HOSPITAL: The patient tolerated the surgery without complications. CONDITION AT DISCHARGE: The patient was stable at discharge. DISCHARGE MEDICATIONS: 1. Prednisolone 1% q.i.d., right eye. 2. Vigamox eye drops one drop q.i.d., right eye. 3. one drop q.i.d., right eye. POSTOPERATIVE ORDERS: The patient has to rest at home. No bending. No lifting. No watching TV tonight. POSTOPERATIVE FOLLOWUP: The patient will be followed in my office tomorrow morning at 9 o'clock. Karel Dotson M.D. DR: JESSICA JOB#: [id number] CC:
== END | disposition home or self-care (01) ==
LOC: SUR 08:14
DX: H26.9 Unspecified cataract (principal); H21.81 Floppy iris syndrome; E11.3593 Type 2 diabetes mellitus with proliferative diabetic retinopathy without macular edema, bilateral; E11.22 Type 2 diabetes mellitus with diabetic chronic kidney disease; I12.9 Hypertensive chronic kidney disease with stage 1 through stage 4 chronic kidney disease, or unspecified chronic kidney disease; N18.3 Chronic kidney disease, stage 3 (moderate); E11.40 Type 2 diabetes mellitus with diabetic neuropathy, unspecified; Z79.4 Long term (current) use of insulin; I73.9 Peripheral vascular disease, unspecified; R00.1 Bradycardia, unspecified; D64.9 Anemia, unspecified; F32.9 Major depressive disorder, single episode, unspecified; F41.9 Anxiety disorder, unspecified; H40.9 Unspecified glaucoma; Z87.891 Personal history of nicotine dependence; Z89.431 Acquired absence of right foot; Z79.82 Long term (current) use of aspirin
CPT/HCPCS: 66982; 82962; J0171; J1100; J1200; J3010; J7120; V2632; 94003; 94150

== ENCOUNTER 2016-11-24 06:25 | Day surgery (SDC) | payer MEDICARE, OTHER ==
--- NOTE | 2016-11-19 16:28 | Pre-Procedure Note/Attestation ---
Pre-Procedure Note/Attestation Complete Prior to Procedure Planned Procedure: left Procedure Narrative: 1. CATARACT EXTRACTION WITH PHACO AND PC IOL IMPLANTATION, LEFT EYE. 2.MALYUGIN RING INSERTION, LEFT EYE FOR FLOPPY IRIS SYNDROME. 3.COMPLEX CATARACT , LEFT EYE Indications for Procedure Pre-Operative Diagnosis: 1. CATARACT ,LEFT EYE. 2. FLOPPY IRIS SYNDROME, LEFT EYE 3. COMPLEX CATARACT , LEFT EYE. Attestation I attest that I discussed the nature of the procedure; its benefits; risks and complications; and alternatives (and the risks and benefits of such alternatives ), prior to the procedure, with the patient (or the patient's legal manufacturer representative). I attest that, if there was a reasonable possibility of needing a blood transfusion, the patient (or the patient's legal manufacturer representative) was given the [facility] standardized written summary, pursuant to the Kj Basim Blood Safety Act ([place] Health and Safety Code # 1645, as amended). I attest that I re-evaluated the patient just prior to the surgery and that there has been no change in the patient's H&P, except as documented below: LULA KNUTSON Nov 19, 2016 16:28
[~2016-11-24] VITALS: Ht 175.3 cm; Wt 66.3 kg
[2016-11-24] VITALS (11 sets, daily range): BP systolic 130–170; BP diastolic 58–71
[~2016-11-24 06:25] MED LIST changes: +Akten 3.5% 1ml Btl ONE; -BSS 15ml BTL ONE; -BSS 500ml btl ONE; -Dexamethasone 4mg/ml vial ONE; +Diclofenac Sod 0.1% Op Soln ONE; -DiphenhydrAMINE 50mg/ml Inj IVP PRN; -DiphenhydrAMINE 50mg/ml Inj ONE; -EPINEPHrine 1mg/1ml Amp ONE; +Gatifloxacin Opth Solution 0.5% ONE; -LR 1000ml 1,000 ML IVLG SCH; -LR 1000ml ONE; -Labetalol 5mg/ml 20ml vial IV ONE; -Labetalol 5mg/ml 20ml vial IV PRN; -Lidocaine 1% MPF 10mg/ml 5ml ONE; -NS Irrig 1000ml ONE; +Phenylephrine 10% Opth Soln 5ml ONE; -Povidone-Iodine 5% opth solution ONE; -Sodium Hyaluronate 10 mg/ml 0.85ml ONE; -Sterile Water Irrig 1000ml IRRIG ONE; +Tropicamide 1% Opth Soln ONE; -fentaNYL 100 mcg/2 mL IV ONE
[2016-11-24] MEDS: Phenylephrine 10% Opth Soln 5ml LEFT EYE SCH ×3 (06:48→07:11)
[2016-11-24] MEDS: Gatifloxacin Opth Solution 0.5% LEFT EYE SCH ×3 (06:49→07:12)
[2016-11-24] MEDS: Diclofenac Sod 0.1% Op Soln LEFT EYE SCH ×3 (06:49→07:12)
[2016-11-24] MEDS: Akten 3.5% 1ml Btl LEFT EYE SCH ×3 (06:49→07:12)
[2016-11-24] MEDS: Tropicamide 1% Opth Soln LEFT EYE SCH ×3 (06:50→07:11)
[2016-11-24] MEDS ORDERED: LR 1000ml ONE (07:00)
[2016-11-24] MEDS ORDERED: Midazolam 2mg/2ml Inj ONE (07:00)
[2016-11-24] MEDS ORDERED: BSS 500ml btl ONE (07:00)
[2016-11-24] MEDS ORDERED: NS Irrig 1000ml ONE (07:00)
[2016-11-24] MEDS ORDERED: Dexamethasone 4mg/ml vial ONE (07:00)
[2016-11-24] MEDS ORDERED: fentaNYL 100 mcg/2 mL IV ONE (07:00)
[2016-11-24] MEDS ORDERED: Sterile Water Irrig 1000ml IRRIG ONE (07:00)
[2016-11-24] MEDS ORDERED: Tetracaine 0.5% Opth Soln ONE (07:00)
[2016-11-24] MEDS ORDERED: Lidocaine 1% MPF 10mg/ml 5ml ONE (07:00)
[2016-11-24] MEDS ORDERED: Propofol 10mg/ml 20ml IV ONE (07:00)
[2016-11-24] MEDS ORDERED: Povidone-Iodine 5% opth solution ONE (07:01)
[2016-11-24] MEDS ORDERED: Carbachol 0.01% Op Soln 1.5ml vial ONE (07:01)
[2016-11-24] MEDS ORDERED: EPINEPHrine 1mg/1ml Amp ONE (07:01)
[2016-11-24] MEDS ORDERED: Sodium Hyaluronate 10 mg/ml 0.85ml ONE (07:02)
[2016-11-24] MEDS ORDERED: BSS 15ml BTL ONE (07:02)
[2016-11-24] MEDS ORDERED: LR 1000ml 1,000 ML IVLG SCH (07:49)
--- NOTE | 2016-11-24 07:49 | Anethesia Preoperative Eval ---
Anesthesia Pre-op PMH/ROS General Date of Evaluation: Nov 24, 2016 Time of Evaluation: 07:10 Anesthesiologist: La Nena ASA Score: ASA 3 Mallampati Score Class I : Soft palate, uvula, fauces, pillars visible Class II: Soft palate, uvula, fauces visible Class III: Soft palate, base of uvula visible Class IV: Only hard plate visible Mallampati Classification: Class II Surgeon: Mauri Diagnosis: L eye cataract Surgical Procedure: L eye cataract extraction with IOL Anesthesia History: none Family History: no anesthesia problems Allergies: Coded Allergies: No Known Allergies (Unverified , 07/02/16) Medications: see eMAR Past Medical History Cardiovascular: Reports: HTN, other - PVD, Denies: CAD, [place], arrhythmia, valve dz Pulmonary: Denies: COPD, CHUN, asthma, other Gastrointestinal/Genitourinary: Reports: CRI, GERD, Denies: ESRD, other Neurologic/Psychiatric: Reports: depression/anxiety, other - Neuropathy, Denies: CVA, TIA, dementia Endocrine: Reports: DM - on insulin, Denies: hypothyroidism, other, steroids HEENT: Reports: cataract (L), cataract (R), Denies: [place] (L), [place] (R), glaucoma, other Hematology/Immune: Reports: anemia - of chronic d-s, Denies: DVT, bleeding disorder, other Musculoskeletal/Integumentary: Reports: other - R foot chronic wound s/p transmetatarsal amp., Denies: DDD, DJD, OA, RA, edema PMH Narrative: as above PSxH Narrative: R eye cataract R foot amputation, colonoscopy Anesthesia Pre-op Phys. Exam Physician Exam Last Vital Signs Date Time Temp Pulse Resp B/P Pulse Ox O2 Delivery O2 Flow Rate FiO2 11/24/16 06:59 98.4 62 18 170/71 99 Room Air Constitutional: NAD Neurologic: CN 2-12 intact Cardiovascular: RRR Respiratory: CTA Gastrointestinal: S/NT/ND Airway Exam Mallampati Score: Class II MO: limited Neck: stiff ROM: limited Teeth: missing Dentures: no lower, no upper Anesthesia Pre-op A/P Labs see chart Studies Pre-op Studies: EKG - SR Risk Assessment & Plan Assessment: ASA 3 Plan: Mac Status Change Before Surgery: No Pre-Antibiotics Drug: none LICO CHAN M.D. Nov 24, 2016 07:49
[2016-11-24] MEDS ORDERED: DiphenhydrAMINE 50mg/ml Inj IVP PRN (08:00)
[2016-11-24] MEDS ORDERED: fentaNYL 100 mcg/2 mL IV PRN (08:00)
--- NOTE | 2016-11-24 08:15 | Brief Operative Note ---
Immediate Post Operative Note Operative Note Chief Complaint: Blurry, left eye. Difficulty reading and watchinh TV Pre-op Diagnosis: 1. CATARACT ,LEFT EYE. 2. FLOPPY IRIS SYNDROME, LEFT EYE 3. COMPLEX CATARACT , LEFT EYE. Procedure: 1- Cataract extraction with phaco and PC IOL implantation, left eye. 2- Malyugin ring inserted for the floppy iris syndrome, left eye 3- Complex cataract extraction, left eye Post-op Diagnosis: same as pre-op Surgeon: Lula Michele md Stoner Hand: nONE Additional Surgeons: nONE Anesthesiologist: dR. Miller Anesthesia: MAC Specimen: none Complications: none Condition: stable Estimated Blood Loss: none Drains: none Implant(s) used?: Yes - Monofocal PC IOL implanted in the left eye without complications LULA MICHELE Nov 24, 2016 08:15
--- NOTE | 2016-11-24 08:19 | Discharge Summary ---
Discharge Summary Discharge Summary Discharge Summary DATE OF ADMISSION: 11/24/2016 DATE OF DISCHARGE:11/24/2016 REASON FOR HOSPITALIZATION: 1- Cataract extraction with phaco and PC IOL implantation, left eye. 2- Complex cataract, left eye. SURGERY PERFORMED: CONDITION IN THE HOSPITAL:The patient tolerated the surgery without complications. DISCHARGE CONDITION: The patient was stable at discharge. DISCHARGE MEDICATIONS: 1. Vigamox eye drops one drop q.i.d, 2. Prednisolone one drop q.i.d, 3. Aculer eye drop , one drop qid, left eye POSTOPERATIVE ORDERS: The patient has to rest at home. No bending, No lifting, No watching Television tonight. POSTOPERATIVE FOLLOW UP: The patient will be followed in my office tomorrow morning at 7 o'clock. LULA KNUTSON Nov 24, 2016 08:19
--- NOTE | 2016-11-24 08:42 | Immediate Post-Op Evaluation ---
Immediate Post-Op Evalulation Immediate Post-Op Evalulation Procedure: L eye cataract extraction with IOL Date of Evaluation: Nov 24, 2016 Time of Evaluation: 08:10 IV Fluids: 300 Blood Products: none Estimated Blood Loss: nne Urinary Output: none Blood Pressure Systolic: 136 Blood Pressure Diastolic: 72 Pulse Rate: 58 Respiratory Rate: 20 O2 Sat by Pulse Oximetry: 99 Temperature (Fahrenheit): 97.6 Pain Score (1-10): 1 Nausea: No Vomiting: No Complications none Patient Status: awake, patent, none Hydration Status: adequate LICO CHAN M.D. Nov 24, 2016 08:42
--- NOTE | 2016-11-24 11:05 | 48 Hour Post Anesthesia Eval ---
Post Anesthesia Evaluation Procedure: L eye cataract extraction with IOL Date of Evaluation: Nov 24, 2016 Time of Evaluation: 11:04 Blood Pressure Systolic: 142 0: 58 Pulse Rate: 62 Respiratory Rate: 20 Temperature (Fahrenheit): 97.3 O2 Sat by Pulse Oximetry: 98 Airway: patent Nausea: No Vomiting: No Pain Intensity: 2 Hydration Status: adequate Cardiopulmonary Status: stable Mental Status/LOC: patient returned to baseline Follow-up Care/Observations: n/a Post-Anesthesia Complications: none Follow-up care needed: ready to discharge LICO CHAN M.D. Nov 24, 2016 11:05
--- NOTE | 2016-11-25 21:40 | Operative Note - Dictated ---
DATE OF OPERATION: 11/24/2016 FACILITY: [facility]. SURGEON: Karel Dotson M.D. MANAGER TRANSIT: None. ANESTHESIOLOGIST: Jun Deutsch M.D. ANESTHESIA: Monitored anesthesia care (MAC). PREOPERATIVE DIAGNOSES: 1. Cataract of the left eye. 2. Glaucoma of the left eye. 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 5. Complex cataract. POSTOPERATIVE DIAGNOSES: 1. Cataract of the left eye. 2. Glaucoma of the left eye. 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 5. Complex cataract. SURGERY PERFORMED: 1. Cataract extraction with phacoemulsification and posterior chamber intraocular lens implantation in the left eye. 2. Insertion of Malyugin ring for treatment of floppy iris syndrome. 3. Complex cataract surgery. 4. Glaucoma surgery. INDICATION FOR SURGERY: The patient is a 71-year-old gentleman with history of diabetes mellitus, hypertension, diabetic retinopathy and he cannot see anything with the left eye. To improve his vision in the left eye, the cataract has to be removed and posterior chamber intraocular lens has to be implanted. INFORMED CONSENT: The nature of the surgery, risks, benefits, alternatives, and potential complications were all explained in detail to the patient in his language, Sw[place] through an translator and interpreter. The potential complications including, but not limited to bleeding, infection, posterior capsular rupture, lens subluxation, flat anterior chamber, iris prolapse, uveitis, corneal edema, macular edema, endophthalmitis, retinal detachment, loss of vision, and loss of the eye were all explained in detail to the patient in his language, Swazi through an translator and interpreter. He voiced understanding and accepted all the complications. The alternatives including accommodating lenses, multifocal lens, toric lens, and conventional cataract surgery with limbal relaxing incision for treatment of astigmatism were all explained in detail to the patient who voiced understanding. The patient elected to have conventional cataract surgery in the left eye. Then, he signed a consent form, which is in the chart. DESCRIPTION OF SURGERY AND FINDINGS: Following that, the patient was taken to the operation room in a stable condition. Lidocaine gel Akten 3.5% was applied to the conjunctiva of the left eye. IV sedation was given by the anesthesiologist, Dr. Deutsch. After adequate anesthesia and sedation had been achieved, the left eye was prepped and draped in a sterile fashion for intraocular surgery. Following that, a speculum was placed in the left eye. Following that, using a Super Sharp knife, a clear corneal side port was created. Following that, 1% lidocaine without preservative (MPF) was injected into the anterior chamber. Then, viscoelastic agent, Healon was injected into the anterior chamber. Following that, a clear corneal temporal keratotomy was performed with a 2.8 mm keratome. Following that, viscoelastic agent was injected into the anterior chamber again. Following that, Malyugin ring was injected into the anterior chamber and the coils of the Malyugin ring were engaged with the sphincter of the pupil and a antonio-shaped space was created for safe phacoemulsification. Following that, Vision Blue was injected under the viscoelastic agent to extend the anterior capsule of the lens. Following that, a clear fresh viscoelastic agent, Healon was injected into the anterior chamber again. Following that, an anterior capsulotomy was performed in the fashion of capsulorrhexis beautifully. Following that, the viscoelastic agent was removed from the anterior chamber in toto. Following that, with balanced salt solution, hydrodissection and hydrodelineation were performed and the nucleus was freed. Following that, a fresh clear viscoelastic agent was injected into the anterior chamber to protect the endothelium of the cornea. Following that, using a phacoemulsification machine in the fashion of horizontal chop, the nucleus was removed in toto. The nucleus was really hard like a rock. Following that, using the irrigation and aspiration unit, cortical material was removed from the capsular bag. The capsular bag was polished. Following that, the capsular bag was filled with viscoelastic agent, Healon. Following that, a +23.5 diopter ZCB00 foldable PC IOL intraocular lens with serial number [id number] was injected into the capsular bag. Using a Sinskey hook, the lens was manipulated in the proper position. Following that, all viscoelastic agent was removed from the anterior nd posterior part of the lens. Anterior chamber was filled with balanced salt solution and the wounds were hydrated with balanced salt solution. Following that, the wound was checked for leakage. There was no leakage seen. Following that, Vigamox eye drops were applied to the conjunctiva of the left eye. At the end of the surgery, the eye was patched with a clear sterile fenestrated shield. The patient tolerated the surgery without complications. At the end of the surgery, the patient was transferred to the recovery room. In the recovery room, 125 mg Diamox was given by mouth stat. Postoperative orders and directions were given to the patient. The patient will be discharged home upon stabilization. The patient will be followed in my office tomorrow morning at 10 a.m. Karel Dotson M.D. DR: JESSICA JOB#: [id number] CC:
== END 2016-11-24 09:35 | disposition home or self-care (01) ==
LOC: SUR 06:25
DX: H26.8 Other specified cataract (principal); H21.81 Floppy iris syndrome; T44.6X5A Adverse effect of alpha-adrenoreceptor antagonists, initial encounter; Y92.009 Unspecified place in unspecified non-institutional (private) residence as the place of occurrence of the external cause; H40.9 Unspecified glaucoma; H21.26 Iris atrophy (essential) (progressive); E11.319 Type 2 diabetes mellitus with unspecified diabetic retinopathy without macular edema; I12.9 Hypertensive chronic kidney disease with stage 1 through stage 4 chronic kidney disease, or unspecified chronic kidney disease; E11.22 Type 2 diabetes mellitus with diabetic chronic kidney disease; N18.9 Chronic kidney disease, unspecified; Z79.4 Long term (current) use of insulin; D63.8 Anemia in other chronic diseases classified elsewhere; K21.9 Gastro-esophageal reflux disease without esophagitis; M19.90 Unspecified osteoarthritis, unspecified site; F32.9 Major depressive disorder, single episode, unspecified; F41.9 Anxiety disorder, unspecified; G62.9 Polyneuropathy, unspecified
CPT/HCPCS: 66982; 82962; J0171; J1100; J2250; J2704; J3010; J7120; V2632; 94003; 94150

== ENCOUNTER 2016-12-08 07:25 | Day surgery (SDC) | payer MEDICARE, OTHER ==
--- NOTE | 2016-12-07 17:11 | Pre-Procedure Note/Attestation ---
Pre-Procedure Note/Attestation Complete Prior to Procedure Planned Procedure: bilateral Procedure Narrative: 1- Ptosis correction upper lids. 2- Entropion correction upper lids. 3-Blepharoplasty uppers lids. Indications for Procedure Pre-Operative Diagnosis: 1- Blepharoptosis upper lids 2-Entropion upper lids. 3-Blepharochalasis upper lids. Attestation I attest that I discussed the nature of the procedure; its benefits; risks and complications; and alternatives (and the risks and benefits of such alternatives ), prior to the procedure, with the patient (or the patient's legal retail representative). I attest that, if there was a reasonable possibility of needing a blood transfusion, the patient (or the patient's legal retail representative) was given the [facility] standardized written summary, pursuant to the Kj Basim Blood Safety Act ([place] Health and Safety Code # 1645, as amended). I attest that I re-evaluated the patient just prior to the surgery and that there has been no change in the patient's H&P, except as documented below: LULA KNUTSON Dec 07, 2016 17:11
[2016-12-08] VITALS (11 sets, daily range): BP systolic 118–216; BP diastolic 55–91
[~2016-12-08] VITALS: Ht 175.3 cm; Wt 67.1 kg
[~2016-12-08 07:25] MED LIST changes: -Akten 3.5% 1ml Btl ONE; +BSS 15ml BTL ONE; +BSS 500ml btl ONE; +Bupivacaine 0.75% 30ml vial INJ ONE; +Dexamethasone 4mg/ml vial ONE; +Diclofenac Sod 0.1% Op Soln LEFT EYE SCH; -Diclofenac Sod 0.1% Op Soln ONE; +Diclofenac Sod 0.1% Op Soln RIGHT EYE SCH; +DiphenhydrAMINE 50mg/ml Inj ONE; +EPINEPHrine 1mg/1ml Amp ONE; +Gatifloxacin Opth Solution 0.5% LEFT EYE SCH; -Gatifloxacin Opth Solution 0.5% ONE; +Gatifloxacin Opth Solution 0.5% RIGHT EYE SCH; +Lidocaine 1% MPF 10mg/ml 5ml ONE; +Lidocaine 2% 20mg/ml/Epi 0.005mg/ml 20ml vial ONE; +Phenylephrine 10% Opth Soln 5ml LEFT EYE SCH; -Phenylephrine 10% Opth Soln 5ml ONE; +Phenylephrine 10% Opth Soln 5ml RIGHT EYE SCH; +Povidone-Iodine 5% opth solution ONE; +Tetracaine 0.5% Opth Soln ONE; +Tropicamide 1% Opth Soln LEFT EYE SCH; -Tropicamide 1% Opth Soln ONE; +Tropicamide 1% Opth Soln RIGHT EYE SCH; -acetaZOLAMIDE 125mg tab ORAL ONE
--- NOTE | 2016-12-08 07:58 | Anethesia Preoperative Eval ---
Anesthesia Pre-op PMH/ROS General Date of Evaluation: Dec 08, 2016 Anesthesiologist: Jignesh ASA Score: ASA 2 Mallampati Score Class I : Soft palate, uvula, fauces, pillars visible Class II: Soft palate, uvula, fauces visible Class III: Soft palate, base of uvula visible Class IV: Only hard plate visible Mallampati Classification: Class II Surgeon: Eusebia Diagnosis: Bilateral ptosis Surgical Procedure: Bilateral blepharoplasty Anesthesia History: none Family History: no anesthesia problems Allergies: Coded Allergies: No Known Allergies (Unverified , 07/02/16) Medications: see eMAR Past Medical History Cardiovascular: Reports: HTN, Denies: CAD, [place], arrhythmia, other, valve dz Pulmonary: Denies: COPD, CHUN, asthma, other Gastrointestinal/Genitourinary: Denies: CRI, ESRD, GERD, other Neurologic/Psychiatric: Denies: CVA, TIA, dementia, depression/anxiety, other Endocrine: Reports: DM, Denies: hypothyroidism, other, steroids HEENT: Denies: [place] (L), [place] (R), cataract (L), cataract (R), glaucoma, other Hematology/Immune: Reports: anemia, Denies: DVT, bleeding disorder, other Musculoskeletal/Integumentary: Denies: DDD, DJD, OA, RA, edema, other PSxH Narrative: right foot toe amputation, eye sx Anesthesia Pre-op Phys. Exam Physician Exam see chart Constitutional: NAD Cardiovascular: RRR Respiratory: CTA Airway Exam Mallampati Score: Class II MO: limited ROM: limited Anesthesia Pre-op A/P Labs see chart Studies Pre-op Studies: EKG - sr Risk Assessment & Plan Assessment: ASA II Plan: MAC Status Change Before Surgery: No Pre-Antibiotics Drug: N/A JOSS CARROLL M.D. Dec 08, 2016 07:58
[2016-12-08] MEDS ORDERED: LR 1000ml 1,000 ML IVLG SCH (08:26)
[2016-12-08] MEDS ORDERED: DiphenhydrAMINE 50mg/ml Inj IVP PRN (08:30)
[2016-12-08] MEDS ORDERED: Maxitrol Opth Oint 3.5gm BOTH EYES ONE (09:00)
[2016-12-08 09:08] LABS: BASOPHILS % (AUTO) 0.7 % (0.0-2.0); EOSINOPHILS % (AUTO) 5.3 % (0.0-3.0); LYMPHOCYTES % (AUTO) 29.6 % (20.0-45.0); MEAN CORPUSCULAR HEMOGLOBIN 28.1 PG (27.0-31.0); MEAN CORPUSCULAR VOLUME 88 FL (80-99); MONOCYTES % (AUTO) 7.4 % (1.0-10.0); NEUTROPHILS % (AUTO) 57.1 % (45.0-75.0); PLATELET COUNT 181 K/UL (150-450); RED BLOOD COUNT 4.39 M/UL (4.70-6.10); RED CELL DISTRIBUTION WIDTH 11.8 % (11.6-14.8); WHITE BLOOD COUNT 7.7 K/UL (4.8-10.8)
[2016-12-08] MEDS ORDERED: Tobradex Opth Oint 3.5gm ONE (09:17)
[2016-12-08] MEDS ORDERED: NS Irrig 1000ml ONE (09:22)
[2016-12-08] MEDS ORDERED: Propofol 10mg/ml 20ml IV ONE (09:22)
[2016-12-08] MEDS ORDERED: Lidocaine 1% MPF 10mg/ml 5ml ONE (09:22)
[2016-12-08] MEDS ORDERED: Sterile Water Irrig 1000ml IRRIG ONE (09:22)
[2016-12-08] MEDS ORDERED: Akten 3.5% 1ml Btl BOTH EYES ONE (09:30)
--- NOTE | 2016-12-08 09:49 | Immediate Post-Op Evaluation ---
Immediate Post-Op Evalulation Immediate Post-Op Evalulation Procedure: Bilateral eyelid blepharoplasty Date of Evaluation: Dec 08, 2016 Time of Evaluation: 11:04 IV Fluids: 300 Blood Products: 0 Estimated Blood Loss: 0 Urinary Output: 0 Blood Pressure Systolic: 149 Blood Pressure Diastolic: 68 Pulse Rate: 64 Respiratory Rate: 16 O2 Sat by Pulse Oximetry: 98 Temperature (Fahrenheit): 98.3 Pain Score (1-10): 0 Nausea: No Vomiting: No Complications 0 Patient Status: awake, reacts, patent, none Hydration Status: adequate Drug: N/A JOSS CARROLL M.D. Dec 08, 2016 09:49
--- NOTE | 2016-12-08 09:50 | 48 Hour Post Anesthesia Eval ---
Post Anesthesia Evaluation Procedure: Bilateral eyelid blepharoplasty Date of Evaluation: Dec 08, 2016 Blood Pressure Systolic: 145 0: 72 Pulse Rate: 61 Respiratory Rate: 16 O2 Sat by Pulse Oximetry: 100 Airway: patent Nausea: No Vomiting: No Pain Intensity: 0 Hydration Status: adequate Cardiopulmonary Status: at baseline Mental Status/LOC: patient returned to baseline Post-Anesthesia Complications: 0 Follow-up care needed: ready to discharge JOSS CARROLL M.D. Dec 08, 2016 09:50
[2016-12-08 09:52] LABS: ANION GAP 8 (5-15); CALCIUM 9.5 mg/dL (8.6-10.2); CARBON DIOXIDE 29 mEQ/L (20-30); CHLORIDE 101 mEQ/L (98-107); CREATININE 1.2 mg/dL (0.7-1.2); GLOMERULAR FILTRATION RATE > 60 mL/min (>60); HEMOLYSIS 1; POTASSIUM 4.9 mEQ/L (3.4-4.9); SODIUM 138 mEQ/L (135-145)
--- NOTE | 2016-12-08 11:06 | Discharge Summary ---
Discharge Summary Discharge Summary Discharge Summary DATE OF ADMISSION: 12/08/2016 DATE OF DISCHARGE: 12/08/2016 REASON FOR HOSPITALIZATION:1- Ptosis upper lids 2- entropion upper lids 3- blepharochlasis ipper lids SURGERY PERFORMED: 1- Ptosis correction, upper lids 2- Entropion correction, upper lids 3- blepharoplasty upper lids. CONDITION IN THE HOSPITAL:The patient tolerated the surgery without complications. DISCHARGE CONDITION: The patient was stable at discharge. DISCHARGE MEDICATIONS: 1. Tobradex eye drops one drop q.i.d, OU 2. Maxitrol eye ointment apply yo lids, bid 3- Keflex capsule 500mg one Po q8h 4- vicodine 5/325 mg one PO q6h PO per pain PRN. 3. POSTOPERATIVE ORDERS: The patient has to rest at home. No bending, No lifting, No watching Television tonight. POSTOPERATIVE FOLLOW UP: The patient will be followed in my office tomorrow morning at 7 o'clock. LULA KNUTSON Dec 08, 2016 11:06
--- NOTE | 2016-12-09 06:32 | Operative Note - Dictated ---
DATE OF OPERATION: 12/08/2016 FACILITY: [facility]. SURGEON: Karel Dotson M.D. CHIEF LOCK TENDER OPERATOR: None. ANESTHESIOLOGIST: Dr. Egan. Anesthesia: Monitored anesthesia care (MAC) plus lidocaine 2% with epinephrine 1:100,000. PREOPERATIVE DIAGNOSES: 1. Ptosis, upper lids. 2. Entropion, upper lids. 3. Blepharochalasis, upper lids and dermatochalasis, upper lids. POSTOPERATIVE DIAGNOSES: 1. Ptosis, upper lids. 2. Entropion, upper lids. 3. Blepharochalasis, upper lids and dermatochalasis, upper lids. SURGERY PERFORMED: 1. Ptosis correction, upper lids. 2. Entropion correction, upper lids. 3. Blepharoplasty, upper lids bilaterally. INDICATION FOR SURGERY: The patient is a 71-year-old gentleman with history of diabetes mellitus, hypertension, and diabetic retinopathy. He has had cataract surgery in both eyes with very good vision and he is happy with the result. He is taking medications that includes insulin, metformin, amlodipine, aspirin, and simvastatin. He has had cataract surgery in both eyes with good result. Now, he is complaining of uveitis, difficulty watching TV, and reading. 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 This is a progressive dermatochalasis skin disease with resulting change of corneal curvature and inducing astigmatism with covering of the visual axis, which leads to interruption for watching TV, reading, and writing. The severity of the patient's dermatochalasis, ptosis, and entropion is clearly demonstrated on enclosed photos and the patient's visual franco. The only solution for this patient is correction of all those disfigurement and anatomy changes with surgery. INFORMED CONSENT: The nature of the surgery, risks, benefits, alternatives, and potential complications were explained to the patient in detail in his language, [place]ian through an drilling foreman. He voiced understanding. The potential complications including, but not limited to bleeding, infection, corneal exposure, overcorrection, undercorrection, ecchymosis, swelling of the face, hematoma, dry eye syndrome, loss of eyelashes, loss of eyebrows, inequality of both eyes, change in vision, even loss of vision, and loss of the eye were all explained in detail to the patient. He voiced understanding and accepted all the complications. Then, he signed a consent form, which is in the chart. DESCRIPTION OF SURGERY AND FINDINGS: Following that, the patient was taken to the operation room in a stable condition. A lidocaine gel Akten 3.5% was applied to the conjunctiva of both eyes. Following that, upper lids were marked with a marking pen 8 mm above the root of the eyelashes and 10 mm below the lower part of the eyebrows. About 20 mm of the skin was left to facilitate eye closure. IV sedation was given by the anesthesiologist, Dr. Egan. After adequate anesthesia and sedation had been achieved, the upper eyelids were anesthetized with 2% lidocaine with epinephrine. Following that, using a Bovie knife, the skin and subdermal tissue were dissected from the orbicularis oculi muscle and excised. A cut was made into the orbicularis oculi muscle. Hemostasis was performed. The two fat compartments were released. The fat compartments were sculptured conservatively. Following that, the eye drop fat was removed as well. Following that, the levator palpebrae superioris muscle were dissected to the aponeurosis of the muscle and aponeurosis of the muscle was tacked about 6 mm on each side and stitched with 6-0 Vicryl and then the sutures were trimmed. Following that, a wedge groove was made 3 mm above the root of the upper eyelids and lashes. Following that, the tarsal material inside the groove was excised with the Vannas scissor. Following that, the lids of the groove was stitched with 6-0 Vicryl. Then, the sutures were trimmed. Following that, rotation was performed. The muscle was stitched with plain 6-0 plain gut. Following that, the skin was stitched with 6-0 plain gut in the fashion of aesthetic continuous running stitches bilaterally. At the end of the surgery, TobraDex ointment was applied to the wound and cold compresses were applied to the wound. Following that, the patient was transferred to the recovery room. In the recovery room, the wound was checked for bleeding. There was no bleeding. Cold compresses were applied to the wounds. Postoperative orders and directions were given to the patient. The patient will be discharged home upon stabilization. The patient will be followed in my office tomorrow morning. Karel Dotson M.D. DR: JESSICA JOB#: [id number] CC:
--- NOTE | 2016-12-10 07:18 | Brief Operative Note ---
Immediate Post Operative Note Operative Note Chief Complaint: Droopy eyelid, difficulty watching TV and reading Pre-op Diagnosis: 1- Blepharoptosis upper lids 2-Entropion upper lids. 3-Blepharochalasis upper lids. Procedure: 1- Ptosis correction,upper lids. 2- Entropion correction, upper lids. 3- Blepharoplasty, upper lids. Post-op Diagnosis: same as pre-op Surgeon: Lula Dotson MD. Metalworker: None Additional Surgeons: None Anesthesiologist: DR. Egan Anesthesia: MAC Specimen: none Complications: none Condition: stable Estimated Blood Loss: minimal Drains: none Implant(s) used?: LULA Keita Dec 10, 2016 07:18
== END 2016-12-08 12:55 | disposition home or self-care (01) ==
LOC: SUR 07:25
DX: H02.403 Unspecified ptosis of bilateral eyelids (principal); H02.034 Senile entropion of left upper eyelid; H02.031 Senile entropion of right upper eyelid; H02.34 Blepharochalasis left upper eyelid; H02.31 Blepharochalasis right upper eyelid; E11.319 Type 2 diabetes mellitus with unspecified diabetic retinopathy without macular edema; I12.9 Hypertensive chronic kidney disease with stage 1 through stage 4 chronic kidney disease, or unspecified chronic kidney disease; E11.22 Type 2 diabetes mellitus with diabetic chronic kidney disease; N18.9 Chronic kidney disease, unspecified; D64.9 Anemia, unspecified; Z79.4 Long term (current) use of insulin; Z79.84 Long term (current) use of oral hypoglycemic drugs
CPT/HCPCS: 15823; 36415; 67924; 80048; 82962; 85025; J0360; J1200; J2704; 94003; 94150